=== PATIENT | male | born 1970 | race Caucasian/White ===

== ENCOUNTER 2016-10-19 13:53 | Emergency (ER) | payer OTHER ==
[~2016-10-19] VITALS: Ht 167.6 cm; Wt 64.3 kg
[2016-10-19 14:01] VITALS: TEMP 36.7; Ht 167.6 cm; Wt 64.3 kg
[2016-10-19] MEDS ORDERED: NYSTATIN SUSP 500,000 U/5 ML UDC PO STA ×2 (14:43→14:46)
[2016-10-19] MEDS ORDERED: NYSS/ PO (14:46)
[2016-10-19] MEDS ORDERED: CLOTRIMAZOLE 1% CR 15 GM TUBE EXT ONE (15:00)
[2016-10-19 15:06] VITALS: BP 120/85; PULSE 89; O2SAT 97
--- NOTE | 2016-10-19 15:14 | EMERGENCY ROOM VISIT NOTE ---
History Report prepared by Martínez: Steve Singh Under the Supervision of: Dr. Maicol Beatty M.D. First contact with patient: 14:30 Chief Complaint: SORETHROAT Stated Complaint: WHITE STOTS IN THROAT, SORE History of Present Illness The patient is a 46 year old male who presents to the Emergency Room with complaints of a worsening sore throat beginning three months prior to arrival. He currently rates his discomfort as a 10/10 in severity. The patient associates white spots in his throat, difficulty swallowing, rash on his chest, sores on his chin and chest, ulcers in his mouth, fever, chills, and nausea with today's symptoms. He states he has been under a lot of stress recently, especially since his girlfriend broke up with him in July. The patient notes he was told yesterday by his ex-girlfriend that she is taking prednisone. He states he participated in oral sex with her in July. The patient notes his doctor prescribed him Acyclovir in the beginning of September. He states he had an episode of thrush two years ago after a shoulder surgery. The patient notes he attends a pain clinic regularly. He states he also has a history of bipolar disorder and a heart attack four years ago. Pt denies LOC, headache, diaphoresis , visual changes, neck pain, chest pain, breathing difficulties, vomiting, abdominal pain, back pain, melena, hematochezia, urinary symptoms, numbness, weakness, lymphadenopathy, or other complaints. 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 A total of ten systems were reviewed and were otherwise negative. Past Medical & Surgical Medical Problems: (1) Bipolar disorder (2) Heart attack (3) Thrush Surgical Problems: (1) S/P shoulder surgery Family History Patient reports no known family medical history. Social History Smoking Status: Current Every Day Smoker Marital Status: single Occupation Status: disabled Current/Historical Medications Scheduled Gabapentin (Neurontin), 300 MG PO TID Lisinopril (Zestril), 2.5 MG PO DAILY Nabumetone (Relafen), 500 MG PO TID Nystatin (Nystatin Suspension), 5 ML PO QID [Alavert D-12], 1 DOSE PO BID Scheduled PRN Hydroxyzine Hcl (Atarax), 25 MG PO TID PRN for Anxiety Nitroglycerin (Nitrostat), 0.4 MG UT UD PRN for Chest Pain [Proair HFA], 2 PUFFS INH UD PRN for SOB/Wheezing Allergies Coded Allergies: Iodinated Diagnostic Agents (Verified Allergy, Severe, ANAPHYLAXIS, 10/19/16 ) Cephalexin (Verified Allergy, Intermediate, Rash and hives, 10/19/16) Physical Exam Vital Signs Date Time Temp Pulse Resp B/P Pulse Ox O2 Delivery O2 Flow Rate FiO2 10/19/16 15:06 89 17 120/85 97 10/19/16 15:00 89 17 120/85 97 Room Air 10/19/16 14:01 36.7 110 20 124/60 96 Room Air Physical Exam GENERAL: Awake, alert, well-appearing, in no distress HENT: Normocephalic, atraumatic. Mild posterior erythema and a few white patches noted in the tonsillar fossae. Small ulceration on the back of the tongue on the right side. EYES: Normal conjunctiva. Sclera non-icteric. NECK: Supple. No nuchal rigidity. FROM. No JVD. RESPIRATORY: Clear to auscultation. CARDIAC: Regular rate, normal rhythm. Extremities warm and well perfused. Pulses equal. ABDOMEN: Soft, non-distended. No tenderness to palpation. No rebound or guarding. No masses. RECTAL: Deferred. MUSCULOSKELETAL: Chest examination reveals no tenderness. The back is symmetrical on inspection without obvious abnormality. There is no CVA tenderness to palpation. No joint edema. LOWER EXTREMITIES: Calves are equal size bilaterally and non-tender. No edema. No discoloration. NEURO: Normal sensorium. No sensory or motor deficits noted. SKIN: Scattered erythematous scaly patches noted on the upper trunk and under the chin. No cellulitis. No abscess. No folliculitis. Medical Decision & Procedures Medications Administered Medications (Trade) Dose Ordered Sig/Adry Route Start Time Stop Time Status Last Admin Dose Admin Nystatin (Mycostatin Susp) 5 ml NOW STAT PO 10/19/16 14:43 10/19/16 14:44 DC 10/19/16 14:57 5 ML Nystatin (Mycostatin Susp) 20 ml NOW STAT PO 10/19/16 14:46 10/19/16 14:48 DC 10/19/16 14:58 20 ML Clotrimazole (Lotrimin 1% Crm) 1 appln NOW ONCE EXT 10/19/16 15:00 10/19/16 15:01 DC 10/19/16 14:59 1 APPLN ED Course 1438: The patient was evaluated in room C11B. A complete history and physical exam was performed. 1443: Ordered Nystatin 5 ml PO. 1446: Ordered Nystatin 5 ml PO. 1500: Ordered Clotrimazole 1 appln EXT. 1505: I reevaluated the patient. Discussed results and discharge instructions: He verbalized understanding and agreement. The patient is ready for discharge. Medical Decision Triage Nursing notes reviewed. The patient's presentation and history were concerning for sore throat, rash. Etiologies such as thrush, aphthous ulcer, viral syndrome, pharyngitis, dermatitis, tinea, peritonsillar abscess as well as others were entertained. The patient was evaluated. I did perform fungal and complete throat culture. The patient appears to have some thrush-like spots in the back of his throat. He notes a long history of this problem. There is nothing acute to warrant CT imaging or x-ray imaging at this time. Blood work was not obtained. The patient has no respiratory distress. He has no neck swelling. He was given nystatin swish and swallow. He was also given clotrimazole cream for the dermatitis. He was recommended to follow up with his primary physician and if his symptoms are not resolved to consider GI and ENT referral with his primary doctor. The patient felt very comfortable with this plan.I gave my usual and customary discussion regarding this issue. By the evaluation outlined above other emergent etiologies such as those listed in the differential, as well as others, were deemed relatively unlikely. The patient was informed about the findings as listed above. All questions were answered and he was pleased with the treatment. Return instructions were outlined and the patient was discharged in stable condition. The patient was referred to his PCP for follow-up for a recheck of the current condition. The chart was completed utilizing [employer] voice recognition software. Grammatical errors, random word insertions, pronoun errors, and incomplete sentences are an occasional consequence of this system due to software limitations, ambient noise, and hardware issues. Any formal questions or concerns about the content, text, or information contained within the body of this dictation should be directly addressed to the physician for clarification. Impression Primary Impression: Pharyngitis Additional Impressions: Thrush, Dermatitis Scribe Attestation The scribe's documentation has been prepared under my direction and personally reviewed by me in its entirety. I confirm that the note above accurately reflects all work, treatment, procedures, and medical decision making performed by me. Departure Information Dispostion Home / Self-Care Prescriptions Nystatin (Nystatin Suspension) 1 Ml Susp 5 ML PO QID, #200 ML Prov: Maicol Beatty MD 10/19/16 Referrals Jame Larios PA-C (PCP) Forms HOME CARE DOCUMENTATION FORM, IMPORTANT VISIT INFORMATION Patient Instructions A Signature Page, My [facility] Additional Instructions Clotrimazole cream to the skin rash twice a day for 10 days. Nystatin swish and swallow 5 mL 4 times daily for 10 days. Continue your current medications. Follow-up with your primary physician as scheduled. Discuss referral to gastroenterology and ENT. Return to the Emergency Room for inability to swallow, severe pain, vomiting, difficulty breathing, neck swelling, or as needed.
[2016-10-19] MEDS ORDERED: HYDR-3124 PO (15:30)
[2016-10-19] MEDS ORDERED: Proair HFA INH (15:30)
[2016-10-19] MEDS ORDERED: NABU500T3 PO (15:30)
[2016-10-19] MEDS ORDERED: GABA-113 PO (15:30)
[2016-10-19] MEDS ORDERED: NTRGSL/4 UT (15:30)
[2016-10-19] MEDS ORDERED: LISI-789 PO (15:30)
[2016-10-19] MEDS ORDERED: ALAVERT D12 PO (15:30)
--- NOTE | 2016-10-22 13:29 | Pharmacy Progress Note ---
ED Pharmacist Culture FollowUp Date of Service: Oct 22, 2016. Patient was sent home with a prescription for nystatin, which should cover the Grace albicans growing from the patient's throat culture.
[2017-06-01] MEDS ORDERED: [UNRECOGNIZED DRUG - CODE] PO (09:12)
[2017-06-01] MEDS ORDERED: HYDR25CA PO (09:12)
[2017-06-01] MEDS ORDERED: DPKEC500 PO (09:12)
[2017-06-01] MEDS ORDERED: NICO14DI5 TD (09:12)
[2017-06-01] MEDS ORDERED: CLR10 PO (09:12)
[2017-06-01] MEDS ORDERED: ZYP10 PO (09:12)
== END 2016-10-19 15:06 | disposition home or self-care (01) ==
LOC: C.EDB 13:55 → C.EDC 15:06
DX: J02.9 Acute pharyngitis, unspecified (principal); B37.9 Candidiasis, unspecified; L30.9 Dermatitis, unspecified; F17.200 Nicotine dependence, unspecified, uncomplicated; F31.9 Bipolar disorder, unspecified

== ENCOUNTER 2017-05-19 10:45 | Emergency (ER) | payer OTHER ==
[~2017-05-19] VITALS: Ht 167.6 cm; Wt 62.6 kg
[~2017-05-19 10:45] MED LIST: ALAVERT D12 PO; GABA-113 PO; HYDR-3124 PO; LISI-789 PO; NABU500T3 PO; NTRGSL/4 UT; NYSS/ PO; Proair HFA INH
[2017-05-19 10:49] VITALS: TEMP 36.7; Ht 167.6 cm; Wt 62.6 kg
[2017-05-19] MEDS ORDERED: RANITIDINE HCL 50 MG/100 ML D5W IV STA (11:06)
[2017-05-19] MEDS ORDERED: PANTOprazole INJ 40 MG in SYRINGE 0 ML IV ONE (11:15)
[2017-05-19 11:32] LABS: BASO % 0.6 %; BASO ABS # 0.04 K/uL (0-0.2); COMPLETE YES; EOS % 0.7 %; HEMATOCRIT 36.3 % (42-52); IG% 0.1 %; LYMPH % 20.1 %; LYMPH ABS # 1.42 K/uL (1.2-3.4); MEAN CELL VOLUME 92.6 fL (80-100); MEAN CORPUSCULAR HEMOGLOBIN 31.6 pg (25-34); MEAN CORPUSCULAR HGB CONC 34.2 g/dl (32-36); MEAN PLATELET VOLUME 9.6 fL (7.4-10.4); MONO % 9.3 %; NEUT % 69.2 %; PLATELET COUNT 197 K/uL (130-400); RED BLOOD COUNT 3.92 M/uL (4.7-6.1); WHITE BLOOD COUNT 7.08 K/uL (4.8-10.8)
[2017-05-19 11:46] LABS: INR 0.9 (0.9-1.1); PROTHROMBIN TIME (PATIENT) 10.1 SECONDS (9.0-12.0)
[2017-05-19 11:50] LABS: BUN/CREATININE RATIO 9.6 (10-20); CALCIUM 8.7 mg/dl (8.5-10.1); CREATININE 1.1 mg/dl (0.60-1.40); POTASSIUM 3.7 mmol/L (3.5-5.1)
[2017-05-19] MEDS ORDERED: ACYC1CAP8 PO (11:50)
[2017-05-19] MEDS ORDERED: LIDOPOW (11:50)
[2017-05-19] MEDS ORDERED: MBXC PO (12:06)
[2017-05-19] MEDS ORDERED: PANT40TA PO (12:06)
--- NOTE | 2017-05-19 12:13 | DIAGNOSTIC IMAGING REPORT ---
CHEST 2 VIEWS ROUTINE HISTORY: persistent cough COMPARISON: None. FINDINGS: The lungs are clear. Cardiac silhouette is normal in size. No pleural effusions. No pneumothorax. IMPRESSION: No acute process. Electronically signed by: Rodrigue Linares M.D. 05/19/2017 12:12 PM Dictated Date/Time: 05/19/2017 12:10 PM
--- NOTE | 2017-05-19 12:31 | EMERGENCY ROOM VISIT NOTE ---
History First contact with patient: 10:52 Chief Complaint: ABDOMINAL PAIN Stated Complaint: ABD PAIN, NAUSEA, SORES IN MOUTH Nursing Triage Summary: triage note: "I feel sick and i hurt inside my stomach, its been going on for a couple weeks now." pt reports hx of bipolar. "someone is doing something to me, the only thing i should have in my system is marijuana and alcohol." "my left leg is filling up with fluid again." pt denies any thoughts of wanting to harm self or others." History of Present Illness The patient is a 46 year old male who presents to the Emergency Room with complaints of epigastric pain for several weeks. The patient admits to heartburn and burning up into his throat. The patient denies any nausea or vomiting. The patient states that the pain radiates up into his central chest. He describes it as "burning". The patient denies any lower abdominal pain or any urinary symptoms. The patient does admit that he is an alcoholic. He currently is drinking beer but just prior to that he was drinking vodka and cranberry juice. He states he is trying to get back into rehabilitation. He also smokes marijuana. The patient is also complaining of head congestion for several weeks and sores in his mouth underneath his dentures. He states this has been going on since August. He was seen here in October for the same symptoms. The patient states that he could not go to his family doctor because he owes $126 and therefore his family doctor will not see him. He normally goes to [place]. The patient denies ever having an endoscopy in the past. He denies any history of peptic ulcer disease. Review of Systems 10 system review was performed and was negative unless stated otherwise history of present illness. Past Medical/Surgical History Medical Problems: (1) Bipolar disorder (2) Heart attack (3) Thrush Surgical Problems: (1) S/P shoulder surgery Family History Patient reports no known family medical history. Social History Smoking Status: Current Every Day Smoker Marital Status: single Occupation Status: disabled Current/Historical Medications Scheduled Acyclovir (Zovirax), 200 MG PO 5 TIMES DAILY Gabapentin (Neurontin), 300 MG PO TID Lisinopril (Zestril), 2.5 MG PO DAILY Magic Swizzle (Magic Swizzle - SUCRALFA/ALUM/MAG/DIPHEN/LIDO), 3-4 TSP PO ACHS Nabumetone (Relafen), 500 MG PO TID Nystatin (Nystatin Suspension), 5 ML PO QID Pantoprazole (Protonix), 40 MG PO DAILY [Alavert D-12], 1 DOSE PO BID Scheduled PRN Hydroxyzine Hcl (Atarax), 25 MG PO TID PRN for Anxiety Nitroglycerin (Nitrostat), 0.4 MG UT UD PRN for Chest Pain [Proair HFA], 2 PUFFS INH UD PRN for SOB/Wheezing Miscellaneous Medications Lidocaine (Bulk) (Lidocaine) Allergies Coded Allergies: Iodinated Diagnostic Agents (Verified Allergy, Severe, ANAPHYLAXIS, 10/19/16 ) Cephalexin (Verified Allergy, Intermediate, Rash and hives, 10/19/16) Physical Exam Vital Signs Date Time Temp Pulse Resp B/P (MAP) Pulse Ox O2 Delivery O2 Flow Rate FiO2 05/19/17 12:51 83 20 128/94 95 05/19/17 10:49 36.7 117 18 142/90 96 Room Air Physical Exam GENERAL: 46-year-old white male appears in no acute distress MENTAL Status: Alert and oriented 3. EARS: Canals clear. TMs good light reflex. NOSE: Nasal mucosa with mild erythema engorgement. PHARYNX: Erythema but no edema noted of the posterior pharynx. No lesions noted on the posterior pharynx. MOUTH: Few scattered ulcers noted on the gingiva. NECK: Supple, no lymphadenopathy noted. No carotid bruits noted. LUNGS: Clear auscultation without wheezes rales or rhonchi. CARDIAC: Regular rate and rhythm without murmur. Pulses is full and equal throughout. BACK: No CVA tenderness noted. ABDOMEN: Positive bowel sounds all 4 quadrants. Soft, tenderness palpation epigastric region otherwise nontender to palpation without organomegaly or masses. RECTAL: No external masses noted. Anal symmetric tone intact. No internal masses noted. Stool guaiac was negative. EXTREMITIES: No cyanosis or edema noted. Medical Decision & Procedures ER Provider Diagnostic Interpretation: CHEST 2 VIEWS ROUTINE HISTORY: persistent cough COMPARISON: None. FINDINGS: The lungs are clear. Cardiac silhouette is normal in size. No pleural effusions. No pneumothorax. IMPRESSION: No acute process. Electronically signed by: Rodrigue Linares M.D. 05/19/2017 12:12 PM Dictated Date/Time: 05/19/2017 12:10 PM Laboratory Results 05/19/17 11:18 Red Blood Count 3.92, Mean Corpuscular Volume 92.6, Mean Corpuscular Hemoglobin 31.6, Mean Corpuscular Hemoglobin Concent 34.2, Mean Platelet Volume 9.6, Neutrophils (%) (Auto) 69.2, Lymphocytes (%) (Auto) 20.1, Monocytes (%) (Auto) 9.3, Eosinophils (%) (Auto) 0.7, Basophils (%) (Auto) 0.6, Neutrophils # (Auto) 4.90, Lymphocytes # (Auto) 1.42, Monocytes # (Auto) 0.66, Eosinophils # (Auto) 0.05, Basophils # (Auto) 0.04 05/19/17 11:18 Test 05/19/17 11:18 White Blood Count 7.08 K/uL (4.8-10.8) Red Blood Count 3.92 M/uL (4.7-6.1) Hemoglobin 12.4 g/dL (14.0-18.0) Hematocrit 36.3 % (42-52) Mean Corpuscular Volume 92.6 fL (80-100) Mean Corpuscular Hemoglobin 31.6 pg (25-34) Mean Corpuscular Hemoglobin Concent 34.2 g/dl (32-36) Platelet Count 197 K/uL (130-400) Mean Platelet Volume 9.6 fL (7.4-10.4) Neutrophils (%) (Auto) 69.2 % Lymphocytes (%) (Auto) 20.1 % Monocytes (%) (Auto) 9.3 % Eosinophils (%) (Auto) 0.7 % Basophils (%) (Auto) 0.6 % Neutrophils # (Auto) 4.90 K/uL (1.4-6.5) Lymphocytes # (Auto) 1.42 K/uL (1.2-3.4) Monocytes # (Auto) 0.66 K/uL (0.11-0.59) Eosinophils # (Auto) 0.05 K/uL (0-0.5) Basophils # (Auto) 0.04 K/uL (0-0.2) RDW Standard Deviation 44.2 fL (36.4-46.3) RDW Coefficient of Variation 13.1 % (11.5-14.5) Immature Granulocyte % (Auto) 0.1 % Immature Granulocyte # (Auto) 0.01 K/uL (0.00-0.02) Prothrombin Time 10.1 SECONDS (9.0-12.0) Prothromb Time International Ratio 0.9 (0.9-1.1) Activated Partial Thromboplast Time 26.4 SECONDS (21.0-31.0) Partial Thromboplastin Ratio 1.0 Anion Gap 5.0 mmol/L (3-11) Est Creatinine Clear Calc Drug Dose 74.3 ml/min Estimated GFR () 92.8 Estimated GFR (Non- 80.1 BUN/Creatinine Ratio 9.6 (10-20) Calcium Level 8.7 mg/dl (8.5-10.1) Total Bilirubin 0.7 mg/dl (0.2-1) Direct Bilirubin 0.1 mg/dl (0-0.2) Aspartate Amino Transf (AST/SGOT) 52 U/L (15-37) Alanine Aminotransferase (ALT/SGPT) 64 U/L (12-78) Alkaline Phosphatase 79 U/L (45-117) Total Protein 6.7 gm/dl (6.4-8.2) Albumin 3.7 gm/dl (3.4-5.0) Lipase 209 U/L (73-393) Medications Administered Medications (Trade) Dose Ordered Sig/Adry Route Start Time Stop Time Status Last Admin Dose Admin Pantoprazole Sodium 40 mg/ Syringe 10 ml @ 5 mls/min NOW ONCE IV 05/19/17 11:15 05/19/17 11:16 DC 05/19/17 11:20 5 MLS/MIN Ranitidine HCl (zANTac IV) 50 mg NOW STAT IV 05/19/17 11:06 05/19/17 11:10 DC 05/19/17 11:18 50 MG ED Course The patient was evaluated. IV access was obtained. CBC and differential, renal profile, LFTs and lipase levels were ordered. The patient was given Protonix 40 mg IV push and Zantac 50 mg IV. Chest x-ray was ordered. By the radiologist and myself as above without any acute findings. Labs are reviewed. The patient hemoglobin and hematocrit were slightly low. The patient was informed that he is anemic. I also discussed in great length with the patient that the alcohol is irritating his mouth and esophagus as well as his stomach. He verbalized understanding. I offered him to speak with the renal case manager about outpatient rehabilitation and he declined. I also discussed with the patient that he needs to follow with his family doctor to get referred for endoscopy. He states he is not happy with his family doctor and is looking for a new one. The patient was independently evaluated by Dr. Duarte who agree with treatment plan. When the patient was in the process of being discharged he then verbalized to the nurse that he would like evaluated by psych. He had told me prior that his family doctor has switched his bipolar medicines in July and he was not happy with this which. He did not return to his family doctor about the issue . The renal case manager went and spoke with the patient. The psych nurse will evaluate the patient. Please see her note for further details. She did not feel that the patient needed further psychiatric evaluation and therefore the patient was discharged home in stable condition. Medical Decision Differential diagnosis include acute gastritis, peptic ulcer disease, esophageal varices, aphthous ulcers, rash, pneumonia Impression Primary Impression: GERD with esophagitis Additional Impressions: Aphthous ulcer of mouth Alcoholism Bipolar disorder Departure Information Dispostion Home / Self-Care Condition GOOD Prescriptions Magic Swizzle (Magic Swizzle - SUCRALFA/ALUM/MAG/DIPHEN/LIDO) 240 Ml Susp 3-4 TSP PO ACHS, #240 ML 100ml Sucralfate 50ml Maalox 50ml Diphenhydramine 40ml 2% Aq. Lidocaine Swish and Swallow Prov: Mattie Hoyt PA-C 05/19/17 Pantoprazole (Protonix) 40 Mg Tab 40 MG PO DAILY, #30 TAB Prov: Mattie Hoyt PA-C 05/19/17 Referrals Jame Larios PA-C (PCP) Forms Call Back Authorization, HOME CARE DOCUMENTATION FORM, IMPORTANT VISIT INFORMATION Patient Instructions My [facility] Additional Instructions Take Protonix daily as prescribed. Take [id number] Zantac 150 mg at bedtime. Stop drinking alcohol!!!! Use the Magic swizzle as directed. Avoid spicy and acidic foods. Follow-up with your family doctor as soon as possible for referral for endoscopy and possibly reevaluate your bipolar medication. If symptoms worsen, return to ER. Problem Qualifiers Additional Impressions: Bipolar disorder Active/Remission status: currently active Current bipolar episode type: mixed Current episode severity: unspecified Qualified Codes: F31.60 - Bipolar disorder, current episode mixed, unspecified
--- NOTE | 2017-05-19 12:46 | EMERGENCY ROOM VISIT NOTE ---
ED Visit Note First contact with patient: 10:52 I have personally seen and evaluated the patient with the physician greenhouse assistant. I agree with the diagnostic/management decisions and have personally been involved in these decisions and agree with the diagnosis.
[2017-05-19 12:51] VITALS: BP 128/94; PULSE 83; O2SAT 95
[2017-06-01] MEDS ORDERED: [UNRECOGNIZED DRUG - CODE] PO (09:12)
[2017-06-01] MEDS ORDERED: CLR10 PO (09:12)
[2017-06-01] MEDS ORDERED: DPKEC500 PO (09:12)
[2017-06-01] MEDS ORDERED: ZYP10 PO (09:12)
[2017-06-01] MEDS ORDERED: HYDR25CA PO (09:12)
[2017-06-01] MEDS ORDERED: NICO14DI5 TD (09:12)
== END 2017-05-19 13:30 | disposition home or self-care (01) ==
LOC: C.EDB 10:46 → C.EDC 13:30
DX: K21.0 Gastro-esophageal reflux disease with esophagitis (principal); K12.0 Recurrent oral aphthae; R10.13 Epigastric pain; R11.0 Nausea; F31.9 Bipolar disorder, unspecified; F10.288 Alcohol dependence with other alcohol-induced disorder; Z79.899 Other long term (current) drug therapy

== ENCOUNTER 2017-05-26 10:42 | Inpatient (IN) | payer OTHER ==
[~2017-05-26] VITALS: Ht 167.6 cm; Wt 59.2 kg
[~2017-05-26 10:42] MED LIST changes: +ACYC1CAP8 PO; +LIDOPOW; +MBXC PO; +PANT40TA PO
[2017-05-26] MEDS ORDERED: SODIUM CHLORIDE 0.9% 1000ML 1,000 ML IV STA (11:10)
[2017-05-26] MEDS ORDERED: LORAZEPAM 1 MG TAB SL STA (11:10)
--- NOTE | 2017-05-26 11:22 | EMERGENCY ROOM VISIT NOTE ---
History Report prepared by Martínez: Thi Molina Under the Supervision of: Dr. Rene Montenegro M.D. First contact with patient: 10:50 Chief Complaint: MENTAL HEALTH EVALUATION Stated Complaint: [id number] History of Present Illness The patient is a 46 year old male who presents to the Emergency Room for a mental health evaluation. The patient states that he suffers from bipolar disorder and depression. He states that he came to the ED today because he stopped taking his medication 2 days ago. He states he did so because he didn't like the way it was making him feel. He reports that he has been feeling itchy all over and not eating or drinking normally. The patient states that he thinks someone is putting something in his food and drink. The patient reports that he wants new medicine. He states that he has been "self medicating" with alcohol and marijuana. He complains go feeling anxious, shoulder pain, decreased sleep, and hyperactivity. He denies a plan to hurt himself, hurt others, other drug use , feeling helpless, and feeling guilty. He notes a history of a hernia operation , chronic hip pain, and anemia. Source of History: patient Onset: two days ago Position: other (global) Quality: other (global) Timing: other (episode) Modifying Factors (Relieving): other (alcohol and marijuana use) Note: The patient complains of not eating or drinking normally, itchiness, feeling anxious, shoulder pain, decreased sleep, and hyperactivity. He denies a plan to hurt himself, hurt others, other drug use, feeling helpless, and feeling guilty. Review of Systems See HPI for pertinent positives and negatives. A total of ten systems were reviewed and were otherwise negative. Past Medical & Surgical Medical Problems: (1) Anemia (2) Bipolar disorder (3) Chronic hip pain (4) Depression (5) Heart attack (6) Thrush Surgical Problems: (1) H/O hernia repair (2) S/P shoulder surgery Family History Patient reports no known family medical history. Social History Smoking Status: Current Every Day Smoker Smokeless Tobacco Use: No Alcohol Use: heavy Drug Use: marijuana Marital Status: single Occupation Status: disabled Current/Historical Medications Scheduled Acyclovir (Zovirax), 400 MG PO BID Gabapentin (Neurontin), 300 MG PO TID Hydroxyzine Pamoate (Vistaril), 1 CAP PO BID Lisinopril (Zestril), 2.5 MG PO DAILY Pantoprazole (Protonix), 40 MG PO DAILY Scheduled PRN Diclofenac Sod (Voltaren), 75 MG PO BID PRN for Pain Nitroglycerin (Nitrostat), 0.4 MG UT UD PRN for Chest Pain Allergies Coded Allergies: Iodinated Diagnostic Agents (Verified Allergy, Severe, ANAPHYLAXIS, 05/26/17 ) Cephalexin (Verified Allergy, Intermediate, Rash and hives, 05/26/17) Physical Exam Vital Signs Date Time Temp Pulse Resp B/P (MAP) Pulse Ox O2 Delivery O2 Flow Rate FiO2 05/26/17 17:12 36.7 77 20 110/68 99 05/26/17 16:32 77 20 110/68 99 Room Air 05/26/17 11:15 36.7 103 22 142/97 96 Room Air 05/26/17 10:44 36.7 110 20 132/90 98 Room Air Physical Exam GENERAL: Awake, alert, well-appearing, NAD HENT: Normocephalic, atraumatic. EYES: Normal conjunctiva. Sclera non-icteric. NECK: Supple. No nuchal rigidity. FROM. RESPIRATORY: CTAB, no rhonchi, wheezing, crackles CARDIAC: Tachycardic rate, regular rhythm, no MRG ABDOMEN: Soft, NTND, BS+ MSK: No chest wall TTP, no LE edema. Tattoos covering body. NEURO: GCS 15, CN 2-12 intact, moves all 4s on command SKIN: No rash or jaundice noted. Medical Decision & Procedures Laboratory Results 05/26/17 11:53 Red Blood Count 4.39, Mean Corpuscular Volume 95.7, Mean Corpuscular Hemoglobin 32.1, Mean Corpuscular Hemoglobin Concent 33.6, Mean Platelet Volume 10.2, Neutrophils (%) (Auto) 70.5, Lymphocytes (%) (Auto) 19.1, Monocytes (%) (Auto) 8.7, Eosinophils (%) (Auto) 0.7, Basophils (%) (Auto) 0.9, Neutrophils # (Auto) 5.19, Lymphocytes # (Auto) 1.41, Monocytes # (Auto) 0.64, Eosinophils # (Auto) 0.05, Basophils # (Auto) 0.07 05/26/17 11:53 Test 8/8/17 11:53 05/26/17 12:01 05/26/17 12:30 White Blood Count 7.37 K/uL (4.8-10.8) Red Blood Count 4.39 M/uL (4.7-6.1) Hemoglobin 14.1 g/dL (14.0-18.0) Hematocrit 42.0 % (42-52) Mean Corpuscular Volume 95.7 fL (80-100) Mean Corpuscular Hemoglobin 32.1 pg (25-34) Mean Corpuscular Hemoglobin Concent 33.6 g/dl (32-36) Platelet Count 265 K/uL (130-400) Mean Platelet Volume 10.2 fL (7.4-10.4) Neutrophils (%) (Auto) 70.5 % Lymphocytes (%) (Auto) 19.1 % Monocytes (%) (Auto) 8.7 % Eosinophils (%) (Auto) 0.7 % Basophils (%) (Auto) 0.9 % Neutrophils # (Auto) 5.19 K/uL (1.4-6.5) Lymphocytes # (Auto) 1.41 K/uL (1.2-3.4) Monocytes # (Auto) 0.64 K/uL (0.11-0.59) Eosinophils # (Auto) 0.05 K/uL (0-0.5) Basophils # (Auto) 0.07 K/uL (0-0.2) RDW Standard Deviation 48.0 fL (36.4-46.3) RDW Coefficient of Variation 13.6 % (11.5-14.5) Immature Granulocyte % (Auto) 0.1 % Immature Granulocyte # (Auto) 0.01 K/uL (0.00-0.02) Anion Gap 7.0 mmol/L (3-11) Est Creatinine Clear Calc Drug Dose 95.7 ml/min Estimated GFR () 120.0 Estimated GFR (Non- 103.5 BUN/Creatinine Ratio 10.3 (10-20) Calcium Level 8.6 mg/dl (8.5-10.1) Total Bilirubin 1.0 mg/dl (0.2-1) Direct Bilirubin 0.2 mg/dl (0-0.2) Aspartate Amino Transf (AST/SGOT) 49 U/L (15-37) Alanine Aminotransferase (ALT/SGPT) 61 U/L (12-78) Alkaline Phosphatase 87 U/L (45-117) Total Protein 7.3 gm/dl (6.4-8.2) Albumin 3.8 gm/dl (3.4-5.0) Thyroid Stimulating Hormone (TSH) 0.503 uIu/ml (0.300-4.500) Salicylates Level 3.6 mg/dl (2.8-20) Acetaminophen Level < 2 ug/ml (10-30) Ethyl Alcohol mg/dL < 3.0 mg/dl (0-3) Bedside Glucose 97 mg/dl (70-99) Urine Color YELLOW Urine Appearance CLEAR (CLEAR) Urine pH 7.0 (4.5-7.5) Urine Specific [place] 1.015 (1.000-1.030) Urine Protein NEG (NEG) Urine Glucose (UA) NEG (NEG) Urine Ketones 1+ (NEG) Urine Occult Blood NEG (NEG) Urine Nitrite NEG (NEG) Urine Bilirubin NEG (NEG) Urine Urobilinogen NEG (NEG) Urine Leukocyte Esterase SMALL (NEG) Urine WBC (Auto) 1-5 /hpf (0-5) Urine RBC (Auto) 0-4 /hpf (0-4) Urine Hyaline Casts (Auto) 1-5 /lpf (0-5) Urine Epithelial Cells (Auto) 0-5 /lpf (0-5) Urine Bacteria (Auto) NEG (NEG) Urine Opiates Screen NEG (NEG) Urine Methadone, Qualitative NEG (NEG) Urine Barbiturates NEG (NEG) Urine Phencyclidine (PCP) Level NEG (NEG) Ur Amphetamine/Methamphetamine NEG (NEG) MDMA (Ecstasy) Screen NEG (NEG) Urine Benzodiazepines Screen NEG (NEG) Urine Cocaine Metabolite NEG (NEG) Urine Marijuana (THC) POS (NEG) Laboratory results reviewed by me Medications Administered Medications (Trade) Dose Ordered Sig/Adry Route Start Time Stop Time Status Last Admin Dose Admin Lorazepam (Ativan Tab) 1 mg NOW STAT SL 05/26/17 11:10 05/26/17 11:14 DC 05/26/17 11:38 1 MG Sodium Chloride 1,000 ml @ 999 mls/hr Q1H1M STAT IV 05/26/17 11:10 05/26/17 12:10 DC 05/26/17 11:10 999 MLS/HR Hydroxyzine HCl (Vistaril Tab) 25 mg NOW STAT PO 05/26/17 11:50 05/26/17 11:51 DC 05/26/17 12:08 25 MG Acetaminophen (Tylenol Tab) 1,000 mg NOW STAT PO 05/26/17 15:00 05/26/17 15:02 DC 05/26/17 15:26 1,000 MG Nicotine (Nicoderm Cq 14MG Patch) 1 patch NOW TD 05/26/17 15:00 05/26/17 17:24 DC 05/26/17 16:23 1 PATCH Loratadine (Claritin Tab) 10 mg NOW ONCE PO 05/26/17 16:15 05/26/17 16:16 DC 05/26/17 16:22 10 MG Haloperidol (Haldol Tab) 5 mg Q4H PRN PO 05/26/17 16:45 06/25/17 16:44 05/26/17 17:00 5 MG ECG Indication: altered mental status Rate (beats per minute): 82 Rhythm: normal sinus Findings: other (normal QRS QTC intervals, no STS changes or TWI) ED Course 1058: The patient was evaluated in room A8. A complete history and physical exam was performed. 1110: Ordered NSS 1000 ml @ 999 mls/hr IV, Ativan Tab 1 mg SL. 1115: Ordered Benadryl Maldonado 25 mg PO. 1150: Ordered Vistaril Tab 25 mg PO. 1500: Nicotine 1 patch TD, Tylenol Tab 1000 mg PO. 1501: The patient has been medically cleared and accepted voluntary inpatient treatment. Medical Decision The patient is a 46 year old male who presents to the Emergency Room for a mental health evaluation.He notes a history of bipolar disorder, depression, a double hernia operation, chronic hip pain, and anemia. Differential diagnoses include medication noncompliance, intoxication, acute psychosis. Patient had fairly benign labwork. He was otherwise medically cleared. Patient was concerned about some possible past heart history but was unable to elaborate. Patient had a fairly unremarkable EKG and did not have any active chest pain. Her mental health specialist saw the patient and agree with the patient would benefit from voluntary inpatient treatment. Patient was amenable to inpatient treatment. He was admitted to 3 S. Medication Reconcilliation Current Medication List: was personally reviewed by nm Blood Pressure Screening Patient's blood pressure: Elevated blood pressure Blood pressure disposition: Referred to PCP Impression Primary Impression: Acute psychosis Additional Impression: Noncompliance Scribe Attestation The scribe's documentation has been prepared under my direction and personally reviewed by me in its entirety. I confirm that the note above accurately reflects all work, treatment, procedures, and medical decision making performed by me. Departure Information Dispostion Mental Health Acute Care Referrals No Doctor, Assigned (PCP) Patient Instructions My [facility] Problem Qualifiers
[2017-05-26] MEDS ORDERED: PANT40TA PO (11:23)
[2017-05-26] MEDS ORDERED: hydrOXYzine HCL 25 MG TAB PO STA (11:50)
[2017-05-26 12:40] LABS: BASO % 0.9 %; BASO ABS # 0.07 K/uL (0-0.2); COMPLETE YES; EOS % 0.7 %; IG% 0.1 %; LYMPH % 19.1 %; LYMPH ABS # 1.41 K/uL (1.2-3.4); MEAN CELL VOLUME 95.7 fL (80-100); MEAN CORPUSCULAR HEMOGLOBIN 32.1 pg (25-34); MEAN CORPUSCULAR HGB CONC 33.6 g/dl (32-36); MEAN PLATELET VOLUME 10.2 fL (7.4-10.4); MONO % 8.7 %; NEUT % 70.5 %; PLATELET COUNT 265 K/uL (130-400); RED BLOOD COUNT 4.39 M/uL (4.7-6.1); WHITE BLOOD COUNT 7.37 K/uL (4.8-10.8)
[2017-05-26 12:46] LABS: BUN/CREATININE RATIO 10.3 (10-20); CALCIUM 8.6 mg/dl (8.5-10.1); CREATININE 0.87 mg/dl (0.60-1.40); POTASSIUM 4.3 mmol/L (3.5-5.1)
[2017-05-26 12:57] LABS: THYROID STIMULATING HORMONE 0.503 uIu/ml (0.300-4.500)
[2017-05-26 12:58] LABS: URINE APPEARANCE CLEAR (CLEAR); URINE BILIRUBIN NEG (NEG); URINE COLOR YELLOW; URINE EPITHELIAL CELL AUTO 0-5 /lpf (0-5); URINE NITRITE NEG (NEG); URINE SPECIFIC GRAVITY 1.015 (1.000-1.030); UROBILINOGEN NEG (NEG)
[2017-05-26 12:59] LABS: MANUAL MICROSCOPIC REQUIRED? NO; REVIEW REQ? NO
[2017-05-26 13:16] LABS: BENZODIAZEPINE, URINE NEG (NEG); COCAINE,URINE NEG (NEG); PHENCYCLIDINE, URINE NEG (NEG)
[2017-05-26 13:16] LABS: ACETAMINOPHEN < 2 ug/ml (10-30)
[2017-05-26] MEDS ORDERED: ACETAMINOPHEN 500 MG TAB PO STA (15:00)
[2017-05-26] MEDS: NICOTINE 14 MG/24 HR TDSY TD SCH ×2 (15:27→16:23)
[2017-05-26] MEDS ORDERED: LORATADINE 10 MG TAB PO ONE (16:15)
[2017-05-26] MEDS ORDERED: [UNRECOGNIZED DRUG - CODE] PO (16:21)
[2017-05-26] MEDS ORDERED: HYDR25CA PO (16:21)
[2017-05-26] MEDS ORDERED: ACYC1CAP8 PO (16:21)
[2017-05-26] MEDS ORDERED: HALOPERIDOL 5 MG TAB PO PRN (16:45)
[2017-05-26] MEDS ORDERED: NITROGLYCERIN 0.4 MG SL PER TAB CHARGE UT PRN (16:45)
[2017-05-26] MEDS ORDERED: BISMUTH SUBSALICYLATE PER ML OMNICELL CHARGE PO PRN (16:45)
[2017-05-26] MEDS ORDERED: ALUMINUM/MAGNESIUM SUSP 30 ML UDC PO PRN (16:45)
[2017-05-26] MEDS ORDERED: HALOPERIDOL LACTATE 5 MG/ML 1 ML VIAL IM STA (16:46)
[2017-05-26 17:12] VITALS: O2SAT 99
[2017-05-26] MEDS: ACETAMINOPHEN 325 MG TAB PO PRN (18:49)
[2017-05-26] MEDS ORDERED: NURSING VERBAL MED ORDER ONE (19:15)
[2017-05-26 19:26] VITALS: BP 119/81; PULSE 80; TEMP 36.8; Ht 167.6 cm; Wt 59.2 kg
[2017-05-26] MEDS ORDERED: LORAZEPAM 1 MG TAB PO PRN (20:15)
[2017-05-26] MEDS ORDERED: GABAPENTIN 300 MG CAP PO SCH (21:00)
[2017-05-26 21:02] VITALS: BP 116/77; PULSE 69; TEMP 36.6
[2017-05-26] MEDS ORDERED: GABAPENTIN 600 MG TAB PO STA (21:14)
[2017-05-26] MEDS: BENZOCAINE 20% (ORAJEL) 11.9 GM TUBE MT SCH (21:14)
[2017-05-26] MEDS: THIAMINE HCL 100 MG TAB PO SCH (21:21)
[2017-05-27] MEDS: GABAPENTIN 600MG Q6H DOSE PO SCH ×2 (04:03→08:49)
[2017-05-27 06:56] VITALS: BP_SYST 117; BP_SYST 133; BP_DIAS 79; BP_DIAS 92; PULSE 71; PULSE 73; TEMP 36.4
[2017-05-27 08:42] VITALS: BP 137/85; PULSE 83; TEMP 36.6
[2017-05-27] MEDS: LISINOPRIL 2.5 MG TAB PO SCH (08:49)
[2017-05-27] MEDS: BENZOCAINE 20% (ORAJEL) 11.9 GM TUBE MT SCH ×4 (08:49→20:50)
[2017-05-27] MEDS: PANTOprazole SOD 40 MG TAB PO SCH (08:49)
[2017-05-27] MEDS ORDERED: OLANZAPINE 2.5 MG TAB PO PRN (10:00)
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
[2017-05-27] MEDS ORDERED: DIVALPROEX SODIUM 500 MG DELAY RELEASE TAB PO ONE (11:30)
[2017-05-27] MEDS: MAGNESIUM HYDROXIDE SUSP 30 ML UDC PO PRN (11:41)
[2017-05-27 12:01] VITALS: BP 122/88; PULSE 97; TEMP 36.7
[2017-05-27] MEDS: DICLOFENAC SOD 25 MG TABEC PO PRN (13:35)
[2017-05-27] MEDS ORDERED: NURSING VERBAL MED ORDER ONE (15:15)
[2017-05-27] MEDS: NICOTINE 21 MG/24 HR TDSY TD SCH (15:36)
[2017-05-27 17:01] VITALS: BP 123/84; PULSE 80; TEMP 36.8
[2017-05-27] MEDS: GABAPENTIN 600MG Q8H DOSE PO SCH (18:13)
[2017-05-27 20:00] VITALS: BP 138/93; PULSE 83; TEMP 36.9
[2017-05-27] MEDS: THIAMINE HCL 100 MG TAB PO SCH (20:48)
[2017-05-27] MEDS: DIVALPROEX SODIUM 500 MG DELAY RELEASE TAB PO SCH (21:04)
[2017-05-27] MEDS ORDERED: OLANZAPINE 2.5 MG TAB PO SCH (22:00)
[2017-05-27] MEDS: SODIUM CHLORIDE 0.65% NA SOLN 45 ML (OCEAN) PRN (22:14)
[2017-05-28] MEDS: GABAPENTIN 600MG Q8H DOSE PO SCH ×2 (02:15→08:29)
[2017-05-28 06:47] VITALS: BP_SYST 120; BP_SYST 127; BP_DIAS 80; BP_DIAS 86; PULSE 76; PULSE 83; TEMP 36.5
[2017-05-28] MEDS: DICLOFENAC SOD 25 MG TABEC PO PRN (07:29)
[2017-05-28 07:40] LABS: CHOLESTEROL/HDL RATIO 2.1
[2017-05-28] MEDS: SODIUM CHLORIDE 0.65% NA SOLN 45 ML (OCEAN) PRN (07:42)
[2017-05-28 08:07] VITALS: BP 127/86; PULSE 76; PULSE 83; TEMP 36.5
[2017-05-28] MEDS: BENZOCAINE 20% (ORAJEL) 11.9 GM TUBE MT SCH ×4 (08:27→21:30)
[2017-05-28] MEDS: PANTOprazole SOD 40 MG TAB PO SCH (08:28)
[2017-05-28] MEDS: DIVALPROEX SODIUM 500 MG DELAY RELEASE TAB PO SCH ×2 (08:28→21:31)
[2017-05-28] MEDS: LISINOPRIL 2.5 MG TAB PO SCH (08:28)
[2017-05-28] MEDS: NICOTINE 21 MG/24 HR TDSY TD SCH ×2 (08:32→15:32)
[2017-05-28] MEDS ORDERED: BENZTROPINE MESYLATE 1 MG TAB PO ONE (10:45)
--- NOTE | 2017-05-28 10:59 | Psychiatric Progress Notes ---
Progress Note Date of Service May 28, 2017. Interval History 46 yo man admitted voluntarily with psychosis. He presents many paranoid delusions of persecution affecting his ability to make reality based decisions. He reports a history of bipolar disorder, , with manic episodes, and has done well on depakote in the past. He is agreeable to returning to depakote, which may also help with his reports of anger. We will also start some zyprexa 2.5 mg HS until depakote therapeutic. Will need to coordinate with his case assistant , Britta, who he says in looking for new housing. He will also need psychiatric follow up. At this time, he requires inpatient care due to the severity of his condition and the inability to manipulate information in a reality based manner. Chief Complaint "My bones ache.". Subjective Patient was seen & assessed interval progress reviewed with Treatment Team. The patient is quite agitated today, feeling that others are disrespecting him. He is misinterpreting acts as intentionally done to frustrate him ie he asked for coffee this AM and was mistakenly give a cup of hot water instead. He is also agitated about having only one change of clothes, no footwear or socks. He just got off of the phone with his case assistant Britta who he says is helping him to find new housing. He was angry and agitated after the call saying that he was supposed to move in Thursday, yesterday, but Britta says things are still in process, and he believes that something is wrong and he isn' t being told. He feels anxious and is asking for something "to calm me down". He continues to deny SI/HI, aud/vis hallucinations and says that he feels safe here. He says "I need a cigarette, a joint and a beer, but I don't want to do that.". Review of Systems Constitutional: + problem reported (bones aching) ENT: + problem reported (dry airways) Respiratory: No cough, No sputum, No wheezing, No shortness of breath, No dyspnea on exertion, No dyspnea at rest, No hemoptysis, No problem reported Cardiovascular: No chest pain, No orthopnea, No PND, No edema, No claudication , No palpitations, No problem reported Abdomen: + diarrhea (yesterday) Musculoskeletal: + joint pain Neurologic: + problem reported (walks with a cane for stability) Psychiatric: + depression symptoms, + anxiety, + problem reported (agitation) Integumentary: + problem reported (skin cracks on fingers) Sleep Information Total Hours of Sleep: 8.25 Meal Information Percent of Breakfast Consumed: 0 Percent of Lunch Consumed: 100 Percent of Dinner Consumed: 95 Mental Status Exam During interview pt is: alert and oriented, other (agitated) Appearance: appropriately dressed, appropriately groomed, other (very lean in appearance) Eye contact is: good Motor behavior is: steady gait & station (walks with a cane), tremor Speech: normal in rate, rhythm & volume Affect: irritable Mood is: angry Thought process: circumstantial, tangential Thought content: delusions Suicidal thought are: denied Homicidal thoughts are: denied Hallucinations: denies auditory, denies visual Cognition: other (obscured by psychosis) Intelligence estimated to be: consistent with level of education Insight: impaired Judgement: impaired Impression The patient remains paranoid, believing others are intentionally withholding information and treating him badly. He is complaining of his bones aching and will give him a one time Cogentin 2 mg. to be sure this is not EPS. Will also allow him to have his shoes at the bedside for gait stability. Social service has talked with his case assistant Britta who clarified that he does have the apartment, but that the landlord will not be available to sign the lease until Thursday, which is why he can't move in until next Thursday. Reviewed his labs with him (FBS, FLP WNL). Will increase Zyprexa to 5 mg. HS and continue/ encourage use of prns zyprexa. Plan (1) Bipolar disorder, current episode manic severe with psychotic features 05/27 - Start Depakote ER 500 mg twice a day, titrating as tolerated. Risks, benefits, alternatives reviewed and accepted including the need for therapeutic blood levels - Start Zyprexa 2.5 mg at bedtime titrating as tolerated. Risks, benefits and alternatives were reviewed and accepted including the risk for tardive dyskinesia -Every 15 minute checks for safety -Encourage participation in group and individual counseling, as tolerated -Monitor food intake in view of recent weight loss due to paranoia -Coordinate with case assistant Britta Reed regarding current services and housing -The patient will need psychiatric aftercare -Obtain records from [facility] in [place] where he last received psychiatric services -Family meeting if indicated 05/28 - Increase Zyprexa to 5 mg. daily - Continue depakote - Reality orientation (2) Alcohol use disorder 05/27 - AWSS protocol - Recommend abstinence - Consider inpatient rehabilitation or IOP after psychosis treated -Recovery protocol (3) Cannabis abuse 05/27 - Recommend abstinence (4) Chronic pain 05/27 -PDMP site queried. Last prescription for opiates 01/23/[address] Cardoso [place] -Will order ibuprofen 600 mg 4 times daily when necessary pain 05/28 - Already has Voltaren ordered, so no Ibuprofen - Will allow to have his shoes during the day - Will have dietary consult due to gum ulcers under his dentures, for food choices Has been reviewed with Dr. Shirley Sheikh Discharge / Aftercare Planning Primary Care Physician: Name: none currently; used to be [facility] Therapist: Name: none Group Cio: Name: Britta Visit Code E&M Code: 71643 Inventory Assets Strengths: Willingness for treatment, has a case assistant, spirituality Needs: to abstain from alcohol and abusable substances Risk Factors Assessment Male: Yes : Yes /single/: Yes Higher / Fall in social status: No Health problems: Yes Mental Health Diagnoses: Yes Substance use disorders: Yes Previous attempt: Yes Previous psychiatric stay: Yes Hopelessness: No Smoker: Yes Protective Factors Assessment Jewish beliefs: Yes : No Responsible for young children: No Employed: No Stable relationships: No Data Vital Signs Last 24 Hrs: Date Time Temp Pulse Resp B/P (MAP) Pulse Ox O2 Delivery O2 Flow Rate FiO2 05/28/17 08:07 36.5 76 16 127/86 83 05/28/17 06:47 36.5 76 16 120/80 83 127/86 05/27/17 20:00 36.9 83 16 138/93 05/27/17 17:01 36.8 80 16 123/84 05/27/17 12:01 36.7 97 16 122/88 Meds Administered Last 24 Hrs: Meds Administered (Past 24Hrs) Medications (Trade) Dose Ordered Sig/Adry Route Start Time Stop Time Status Last Admin Dose Admin Lorazepam (Ativan Tab) 1 mg NOW STAT SL 8/8/17 11:10 05/26/17 11:14 DC 05/26/17 11:38 1 MG Sodium Chloride 1,000 ml @ 999 mls/hr Q1H1M STAT IV 05/26/17 11:10 05/26/17 12:10 DC 05/26/17 11:10 999 MLS/HR Hydroxyzine HCl (Vistaril Tab) 25 mg NOW STAT PO 05/26/17 11:50 05/26/17 11:51 DC 05/26/17 12:08 25 MG Acetaminophen (Tylenol Tab) 1,000 mg NOW STAT PO 05/26/17 15:00 05/26/17 15:02 DC 05/26/17 15:26 1,000 MG Nicotine (Nicoderm Cq 14MG Patch) 1 patch NOW TD 05/26/17 15:00 05/26/17 17:24 DC 05/26/17 16:23 1 PATCH Loratadine (Claritin Tab) 10 mg NOW ONCE PO 05/26/17 16:15 05/26/17 16:16 DC 05/26/17 16:22 10 MG Acetaminophen (Tylenol Tab) 650 mg Q4H PRN PO 05/26/17 16:45 06/25/17 16:44 05/26/17 18:49 650 MG Magnesium Hydroxide (Milk Of Magnesia Susp) 30 ml DAILY PRN PO 05/26/17 16:45 06/25/17 16:44 05/27/17 11:41 30 ML Sodium Chloride ([place] Nasal [place]) PRN PRN NA 05/26/17 16:45 06/25/17 16:44 05/28/17 07:42 1 SPRAYS Diclofenac Sodium (Voltaren Tab) 75 mg BID PRN PO 05/26/17 16:45 06/25/17 16:44 05/28/17 07:29 75 MG Lisinopril (Zestril Tab) 2.5 mg DAILY PO 05/27/17 09:00 06/26/17 08:59 05/28/17 08:28 2.5 MG Pantoprazole Sodium (Protonix Tab) 40 mg DAILY PO 05/27/17 09:00 06/26/17 08:59 05/28/17 08:28 40 MG Haloperidol (Haldol Tab) 5 mg Q4H PRN PO 05/26/17 16:45 05/27/17 10:59 DC 05/26/17 17:00 5 MG Benzocaine (Orajel 2% Oral Gel) 1 appln QID MT 05/26/17 22:00 06/25/17 21:59 05/28/17 08:27 1 APPLN Thiamine HCl (Vitamin B-1 Tab) 100 mg Q24H PO 05/26/17 21:00 06/25/17 20:59 05/27/17 20:48 100 MG Gabapentin (Neurontin Tab) 1,200 mg NOW STAT PO 05/26/17 21:14 05/26/17 21:15 DC 05/26/17 21:21 1,200 MG Gabapentin (Neurontin Tab) 600 mg Q6H PO 05/27/17 04:00 05/27/17 10:01 DC 05/27/17 08:49 600 MG Gabapentin (Neurontin Tab) 600 mg Q8H PO 05/27/17 18:00 05/28/17 10:01 DC 05/28/17 08:29 600 MG Divalproex Sodium (Depakote Delay Rel Tab) 500 mg BID PO 05/27/17 22:00 06/26/17 21:59 05/28/17 08:28 500 MG Divalproex Sodium (Depakote Delay Rel Tab) 500 mg 1130 ONCE PO 05/27/17 11:30 05/27/17 11:31 DC 05/27/17 11:41 500 MG Olanzapine (Zyprexa Tab) 2.5 mg HS PO 05/27/17 22:00 06/26/17 21:59 05/27/17 21:04 2.5 MG Nicotine (Nicoderm Cq 21MG Patch) 1 patch QAM TD 05/27/17 15:12 06/26/17 15:11 05/27/17 15:36 1 PATCH Lab Results Last 24 Hrs: Last 24 Hours Test 05/28/17 06:51 Fasting Glucose 94 mg/dl Triglycerides Level 101 mg/dl Cholesterol Level 145 mg/dl HDL Cholesterol 70 mg/dl LDL Cholesterol, Calculated 55 mg/dl VLDL Cholesterol, Calculated 20 mg/dl Cholesterol/HDL Ratio 2.1 Problem Qualifiers (1) Chronic pain: Chronic pain type: due to trauma Qualified Codes: G89.21 - Chronic pain due to trauma
[2017-05-28] MEDS: OLANZAPINE 2.5 MG TAB PO PRN ×2 (11:18→19:53)
[2017-05-28 12:47] VITALS: BP 132/88; PULSE 79; TEMP 36.9
[2017-05-28 17:46] VITALS: BP 156/79; PULSE 97; TEMP 36.8
[2017-05-28] MEDS: ACETAMINOPHEN 325 MG TAB PO PRN (19:52)
[2017-05-28 20:11] VITALS: BP 136/79; PULSE 76; TEMP 36.8
[2017-05-28] MEDS: MAGNESIUM HYDROXIDE SUSP 30 ML UDC PO PRN (20:37)
[2017-05-28] MEDS: THIAMINE HCL 100 MG TAB PO SCH (21:30)
[2017-05-28] MEDS ORDERED: OLANZAPINE 5 MG TAB PO SCH (22:00)
[2017-05-28] MEDS ORDERED: GABAPENTIN 600MG Q12H DOSE PO SCH (22:00)
[2017-05-29 06:49] VITALS: BP_SYST 106; BP_SYST 114; BP_DIAS 68; BP_DIAS 74; PULSE 67; PULSE 76; TEMP 36.4
[2017-05-29] MEDS: PANTOprazole SOD 40 MG TAB PO SCH (08:23)
[2017-05-29] MEDS: DIVALPROEX SODIUM 500 MG DELAY RELEASE TAB PO SCH ×2 (08:23→21:20)
[2017-05-29] MEDS: LISINOPRIL 2.5 MG TAB PO SCH (08:23)
[2017-05-29] MEDS: BENZOCAINE 20% (ORAJEL) 11.9 GM TUBE MT SCH ×4 (08:23→21:20)
[2017-05-29] MEDS: NICOTINE 21 MG/24 HR TDSY TD SCH (08:24)
[2017-05-29 08:59] VITALS: BP 114/68; PULSE 67; PULSE 76; TEMP 36.4
--- NOTE | 2017-05-29 11:55 | Psychiatric Progress Notes ---
Progress Note Date of Service May 29, 2017. Interval History 46 yo man admitted voluntarily with psychosis. He presents many paranoid delusions of persecution affecting his ability to make reality based decisions. He reports a history of bipolar disorder, with manic episodes and was restarted on Depakote with adjunctive Zyprexa until therapeutic on mood stabilizer. Chief Complaint "They need to quit messing with me". Subjective Patient was seen & assessed interval progress reviewed with Treatment Team. Received prn Zyprexa last pm, he states due to restlessness. He feels uncomfortable in groups as "I've had some issue with people with all of the names here". He is irritable with staff this am, disorganized 1 minute asking to leave and the next saying we need to figure out his housing. Apparently his reports of disarray of his housing situation were reality based. He believes that items on his food tray aren't correct on purpose to harm him and then references GOD and his past foster parents. He denies symptoms of ETOH withdrawal. Review of Systems Psych: denies symptoms other than stated above Constitutional: nasal congestion Cardiovascular: denied GI: denied Neurologic: denied Remainder of 10 body systems also reviewed and denied other than noted above. Sleep Information Total Hours of Sleep: 6.50 Meal Information Percent of Breakfast Consumed: 50 Percent of Lunch Consumed: 100 Percent of Dinner Consumed: 100 Mental Status Exam During interview pt is: alert and oriented, other (agitated) Appearance: disheveled, other (very lean in appearance) Eye contact is: good, fair Motor behavior is: steady gait & station (walks with a cane), tremor Speech: loud (hyperverbal) Affect: irritable Mood is: irritable Thought process: tangential Thought content: paranoid, delusions Suicidal thought are: denied Homicidal thoughts are: denied Hallucinations: denies auditory, denies visual Cognition: other (obscured by psychosis) Intelligence estimated to be: consistent with level of education Insight: impaired Judgement: impaired Impression Remains manic and paranoid, restless and loud but not combative. Continued inpatient hospitalization is medically necessary for ongoing monitoring and safety. Plan (1) Bipolar disorder, current episode manic severe with psychotic features 05/27 - Start Depakote ER 500 mg twice a day, titrating as tolerated. Risks, benefits, alternatives reviewed and accepted including the need for therapeutic blood levels - Start Zyprexa 2.5 mg at bedtime titrating as tolerated. Risks, benefits and alternatives were reviewed and accepted including the risk for tardive dyskinesia -Every 15 minute checks for safety -Encourage participation in group and individual counseling, as tolerated -Monitor food intake in view of recent weight loss due to paranoia -Coordinate with case investigator Britta Reed regarding current services and housing -The patient will need psychiatric aftercare -Obtain records from [facility] in [place] where he last received psychiatric services -Family meeting if indicated 05/28 - Increase Zyprexa to 5 mg. daily - Continue depakote - Reality orientation 05/29 --increase Zyprexa to 10 mg hs for mood related psychosis and sleep/ appetite disturbance, more irritable today; ordered Depakote level for 06/02/17. He does not appear to have EPS on exam. (2) Alcohol use disorder 05/27 - AWSS protocol - Recommend abstinence - Consider inpatient rehabilitation or IOP after psychosis treated -Recovery protocol 05/29 --The patient's AUDIT score suggests problematic drinking (Zone III WHO). Brief intervention was offered and limited by patient's condition. Intervention was greater than 5 min in length. Brief interventions include: 1. Assess Readiness to Quit, 2. Advise: Help Patient to Reduce or Abstain from Alcohol, 3. Agree: Set Specific, Feasible Goals, 4. Assist: Anticipate barriers, Problem-Solving Solutions. Social work to 5. Arrange: Referrals to appropriate treatment. Summary of intervention: The patient is in precontemplation stage with regards to transtheoretical model of change. The patient is advised to decrease alcohol consumption due to depressant effects and risk of interactions with prescription medications. The patient expresses interest in abstaining but states only way he will do this is to resume regular MJ use which is also not advised. AWSS has been discontinued and he will be provided recovery materials with the hope that he will be more receptive to additional interventions when mood is more stable. (3) Cannabis abuse 05/27 - Recommend abstinence (4) [facility]. Last prescription for opiates 01/23/[address] Cardoso in [place] -Will order ibuprofen 600 mg 4 times daily when necessary pain 05/28 - Already has Rohit ordered, so no Ibuprofen - Will allow to have his shoes during the day - Will have dietary consult due to gum ulcers under his dentures, for food choices Has been reviewed with Dr. Shirley Sheikh Discharge / Aftercare Planning Primary Care Physician: Name: none currently; used to be [facility] Therapist: Name: none Commercial Teller: Name: Britta Visit Code E&M Code: 01520 Inventory Assets Strengths: Willingness for treatment, has a case investigator, spirituality Needs: to abstain from alcohol and abusable substances Risk Factors Assessment Male: Yes : Yes /single/: Yes Higher / Fall in social status: No Health problems: Yes Mental Health Diagnoses: Yes Substance use disorders: Yes Previous attempt: Yes Previous psychiatric stay: Yes Hopelessness: No Smoker: Yes Protective Factors Assessment Druze beliefs: Yes : No Responsible for young children: No Employed: No Stable relationships: No Data Vital Signs Last 24 Hrs: Date Time Temp Pulse Resp B/P (MAP) Pulse Ox O2 Delivery O2 Flow Rate FiO2 05/29/17 08:59 36.4 67 16 114/68 76 05/29/17 06:49 36.4 67 16 106/74 76 114/68 05/28/17 20:11 36.8 76 16 136/79 05/28/17 17:46 36.8 97 16 156/79 05/28/17 12:47 36.9 79 18 132/88 Meds Administered Last 24 Hrs: Meds Administered (Past 24Hrs) Medications (Trade) Dose Ordered Sig/Adry Route Start Time Stop Time Status Last Admin Dose Admin Gabapentin (Neurontin Tab) 600 mg Q8H PO 05/27/17 18:00 05/28/17 10:01 DC 05/28/17 08:29 600 MG Gabapentin (Neurontin Tab) 600 mg Q12H PO 05/28/17 22:00 05/29/17 08:22 DC 05/28/17 21:32 600 MG Divalproex Sodium (Depakote Delay Rel Tab) 500 mg BID PO 05/27/17 22:00 06/26/17 21:59 05/29/17 08:23 500 MG Olanzapine (Zyprexa Tab) 2.5 mg HS PO 05/27/17 22:00 05/28/17 10:44 DC 05/27/17 21:04 2.5 MG Nicotine (Nicoderm Cq 21MG Patch) 1 patch QAM TD 05/27/17 15:12 06/26/17 15:11 05/28/17 15:32 1 PATCH Benztropine Mesylate (Cogentin Tab) 2 mg NOW ONCE PO 05/28/17 10:45 05/28/17 10:46 DC 05/28/17 11:18 2 MG Olanzapine (Zyprexa Tab) 5 mg HS PO 05/28/17 22:00 05/29/17 10:56 DC 05/28/17 21:33 5 MG Olanzapine (Zyprexa Tab) 2.5 mg TID PRN PO 05/28/17 10:45 05/29/17 10:56 DC 05/28/17 19:53 2.5 MG Problem Qualifiers (1) Chronic pain: Chronic pain type: due to trauma Qualified Codes: G89.21 - Chronic pain due to trauma
[2017-05-29] MEDS: hydrOXYzine HCL 25 MG TAB PO PRN (14:17)
[2017-05-29] MEDS: DICLOFENAC SOD 25 MG TABEC PO PRN ×3 (14:28→21:39)
[2017-05-29] MEDS: OLANZAPINE 10 MG TAB PO SCH (21:19)
[2017-05-29] MEDS: THIAMINE HCL 100 MG TAB PO SCH (21:20)
[2017-05-30] MEDS: LISINOPRIL 2.5 MG TAB PO SCH (07:41)
[2017-05-30] MEDS: PANTOprazole SOD 40 MG TAB PO SCH (07:41)
[2017-05-30] MEDS: DIVALPROEX SODIUM 500 MG DELAY RELEASE TAB PO SCH ×2 (07:41→21:10)
[2017-05-30] MEDS: hydrOXYzine HCL 25 MG TAB PO PRN ×2 (07:42→21:12)
[2017-05-30] MEDS: OLANZAPINE 5 MG TAB PO PRN (07:43)
[2017-05-30] MEDS: BENZOCAINE 20% (ORAJEL) 11.9 GM TUBE MT SCH ×4 (07:53→21:09)
[2017-05-30] MEDS: NICOTINE 21 MG/24 HR TDSY TD SCH (07:54)
[2017-05-30 08:38] VITALS: BP 112/78; PULSE 86; TEMP 36.5
[2017-05-30] MEDS ORDERED: NICOTINE 14 MG/24 HR TDSY TD ONE (09:59)
[2017-05-30] MEDS ORDERED: LORATADINE 10 MG TAB PO ONE (09:59)
[2017-05-30] MEDS ORDERED: GABAPENTIN 600MG Q24H DOSE PO SCH (10:00)
--- NOTE | 2017-05-30 10:05 | Psych Management Progress Note ---
Psychiatry Miscellaneous Date of Service: May 30, 2017. Patient seen, MS assessed. States he didn't attend group as "no one is supportive", related to his paranoia. Cooperative with care and treatment plan as outlined by YAIR.
--- NOTE | 2017-05-30 10:15 | Psychiatric Progress Notes ---
Progress Note Date of Service May 30, 2017. Interval History 46 yo man admitted voluntarily with psychosis. He presents many paranoid delusions of persecution affecting his ability to make reality based decisions. He reports a history of bipolar disorder, with manic episodes and was restarted on Depakote with adjunctive Zyprexa until therapeutic on mood stabilizer. Chief Complaint "I need to get out of here, away from all this negativity.". Subjective Patient was seen & assessed interval progress reviewed with Treatment Team. The patient says that he wants to be discharged on Thursday, feeling agitated about his peers here being "negative", saying he won't go to anymore groups because of it. He has a list of questions and a list of his meds wanting several adjustments. He is paranoid that the saline nasal spray he has been given does not contain saline. is also focused on not taking anything at night that will make him sedated, saying that he has to remain alert to maintain his safety. He is somatically focused, complaining of sinus troubles, dry airway, odd feeling in his lungs, pain in his bones, and an ingrown toenail. He says that his mouth sores have not been able to heal because of the contamination where he was living. he is aware that his dependency case manager will pick him up on Thursday and take him to him new apartment in [place]. He denies aud/vis hallucinations. Denies SI. Review of Systems Constitutional: + problem reported (pain in his bones) ENT: + problem reported Respiratory: + problem reported (an odd feeling in his lungs) Cardiovascular: No chest pain, No orthopnea, No PND, No edema, No claudication , No palpitations, No problem reported Abdomen: No pain, No nausea, No vomiting, No diarrhea, No constipation, No GI bleeding, No problem reported Musculoskeletal: + problem reported (pain in his bones, pain in rt great toe, walks with a cane) Neurologic: No memory loss, No paralysis, No weakness, No numbness/tingling, No vertigo, No balance problems, No problem reported Psychiatric: + problem reported (irritable, paranoid) Integumentary: No rash, No itch, No new/changing skin lesions, No color change , No bleeding, No problem reported Sleep Information Total Hours of Sleep: 7.50 Meal Information Percent of Breakfast Consumed: 100 Percent of Lunch Consumed: 50 Percent of Dinner Consumed: 100 Mental Status Exam During interview pt is: alert and oriented, other (agitated) Appearance: appropriately dressed, appropriately groomed, other (very lean in appearance) Eye contact is: good Motor behavior is: steady gait & station (walks with a cane), tremor Speech: loud (hyperverbal) Affect: irritable Mood is: irritable Thought process: tangential Thought content: paranoid, delusions Suicidal thought are: denied Homicidal thoughts are: denied Hallucinations: denies auditory, denies visual Cognition: other (obscured by psychosis) Intelligence estimated to be: consistent with level of education Insight: impaired Judgement: impaired Impression Still agitated and paranoid, but cooperating with medications. Will oblige the patient with his medication requests including Claritin 10 mg. daily, reducing nicotine patch to 14 mg. have attempted to clarify his meds with him as he had some misunderstanding of them. He will have a depakote level next week. We are hopeful that he can be discharged to his new apartment on Thursday. Plan (1) Bipolar disorder, current episode manic severe with psychotic features 05/27 - Start Depakote ER 500 mg twice a day, titrating as tolerated. Risks, benefits, alternatives reviewed and accepted including the need for therapeutic blood levels - Start Zyprexa 2.5 mg at bedtime titrating as tolerated. Risks, benefits and alternatives were reviewed and accepted including the risk for tardive dyskinesia -Every 15 minute checks for safety -Encourage participation in group and individual counseling, as tolerated -Monitor food intake in view of recent weight loss due to paranoia -Coordinate with dependency case manager Britta Reed regarding current services and housing -The patient will need psychiatric aftercare -Obtain records from [facility] in [place] where he last received psychiatric services -Family meeting if indicated 05/28 - Increase Zyprexa to 5 mg. daily - Continue depakote - Reality orientation 05/29 --increase Zyprexa to 10 mg hs for mood related psychosis and sleep/ appetite disturbance, more irritable today; ordered Depakote level for 06/02/17. He does not appear to have EPS on exam. 05/30 - Continue current meds - Reality orientation (2) Alcohol use disorder 05/27 - AWSS protocol - Recommend abstinence - Consider inpatient rehabilitation or IOP after psychosis treated -Recovery protocol 05/29 --The patient's AUDIT score suggests problematic drinking (Zone III WHO). Brief intervention was offered and limited by patient's condition. Intervention was greater than 5 min in length. Brief interventions include: 1. Assess Readiness to Quit, 2. Advise: Help Patient to Reduce or Abstain from Alcohol, 3. Agree: Set Specific, Feasible Goals, 4. Assist: Anticipate barriers, Problem-Solving Solutions. Social work to 5. Arrange: Referrals to appropriate treatment. Summary of intervention: The patient is in precontemplation stage with regards to transtheoretical model of change. The patient is advised to decrease alcohol consumption due to depressant effects and risk of interactions with prescription medications. The patient expresses interest in abstaining but states only way he will do this is to resume regular MJ use which is also not advised. AWSS has been discontinued and he will be provided recovery materials with the hope that he will be more receptive to additional interventions when mood is more stable. (3) Cannabis abuse 05/27 - Recommend abstinence (4) Chronic pain 05/27 -[facility] site queried. Last prescription for opiates 01/23/[address] Cardoso in [place] -Will order ibuprofen 600 mg 4 times daily when necessary pain 05/28 - Already has Voltaren ordered, so no Ibuprofen - Will allow to have his shoes during the day - Will have dietary consult due to gum ulcers under his dentures, for food choices (5) Tobacco abuse 05/30 - Reduce nicotine patch to 14 mg Has been reviewed with Dr. Shirley Sheikh Discharge / Aftercare Planning Primary Care Physician: Name: [facility] Date of Appointment: Jun 25, 2017 Time of Appointment: 9:45 Psychiatrist: Name: Franklin Morin Date of Appointment: Jul 13, 2017 Time of Appointment: 11:00am Therapist: Name: [employer] Person: Name: Britta Reed Date of Appointment: Jun 01, 2017 Appointment Notes: at discharge Visit Code E&M Code: 31032 Inventory Assets Strengths: Willingness for treatment, has a dependency case manager, spirituality Needs: to abstain from alcohol and abusable substances Risk Factors Assessment Male: Yes : Yes /single/: Yes Higher / Fall in social status: No Health problems: Yes Mental Health Diagnoses: Yes Substance use disorders: Yes Previous attempt: Yes Previous psychiatric stay: Yes Hopelessness: No Smoker: Yes Protective Factors Assessment Quaker beliefs: Yes : No Responsible for young children: No Employed: No Stable relationships: No Data Vital Signs Last 24 Hrs: Date Time Temp Pulse Resp B/P (MAP) Pulse Ox O2 Delivery O2 Flow Rate FiO2 05/30/17 08:38 36.5 86 16 112/78 Meds Administered Last 24 Hrs: Meds Administered (Past 24Hrs) Medications (Trade) Dose Ordered Sig/Adry Route Start Time Stop Time Status Last Admin Dose Admin Gabapentin (Neurontin Tab) 600 mg Q12H PO 05/28/17 22:00 05/29/17 08:22 DC 05/28/17 21:32 600 MG Benztropine Mesylate (Cogentin Tab) 2 mg NOW ONCE PO 05/28/17 10:45 05/28/17 10:46 DC 05/28/17 11:18 2 MG Olanzapine (Zyprexa Tab) 5 mg HS PO 05/28/17 22:00 05/29/17 10:56 DC 05/28/17 21:33 5 MG Olanzapine (Zyprexa Tab) 2.5 mg TID PRN PO 05/28/17 10:45 05/29/17 10:56 DC 05/28/17 19:53 2.5 MG Olanzapine (Zyprexa Tab) 10 mg HS PO 05/29/17 22:00 06/27/17 21:59 05/29/17 21:19 10 MG Olanzapine (Zyprexa Tab) 5 mg TID PRN PO 05/29/17 14:00 06/27/17 10:44 05/30/17 07:43 5 MG Lab Results Last 24 Hrs: 05/26/17 11:53 Red Blood Count 4.39, Mean Corpuscular Volume 95.7, Mean Corpuscular Hemoglobin 32.1, Mean Corpuscular Hemoglobin Concent 33.6, Mean Platelet Volume 10.2, Neutrophils (%) (Auto) 70.5, Lymphocytes (%) (Auto) 19.1, Monocytes (%) (Auto) 8.7, Eosinophils (%) (Auto) 0.7, Basophils (%) (Auto) 0.9, Neutrophils # (Auto) 5.19, Lymphocytes # (Auto) 1.41, Monocytes # (Auto) 0.64, Eosinophils # (Auto) 0.05, Basophils # (Auto) 0.07 05/26/17 11:53 Test 05/26/17 11:53 05/26/17 12:01 05/26/17 12:30 05/28/17 06:51 White Blood Count 7.37 K/uL (4.8-10.8) Red Blood Count 4.39 M/uL (4.7-6.1) Hemoglobin 14.1 g/dL (14.0-18.0) Hematocrit 42.0 % (42-52) Mean Corpuscular Volume 95.7 fL (80-100) Mean Corpuscular Hemoglobin 32.1 pg (25-34) Mean Corpuscular Hemoglobin Concent 33.6 g/dl (32-36) Platelet Count 265 K/uL (130-400) Mean Platelet Volume 10.2 fL (7.4-10.4) Neutrophils (%) (Auto) 70.5 % Lymphocytes (%) (Auto) 19.1 % Monocytes (%) (Auto) 8.7 % Eosinophils (%) (Auto) 0.7 % Basophils (%) (Auto) 0.9 % Neutrophils # (Auto) 5.19 K/uL (1.4-6.5) Lymphocytes # (Auto) 1.41 K/uL (1.2-3.4) Monocytes # (Auto) 0.64 K/uL (0.11-0.59) Eosinophils # (Auto) 0.05 K/uL (0-0.5) Basophils # (Auto) 0.07 K/uL (0-0.2) RDW Standard Deviation 48.0 fL (36.4-46.3) RDW Coefficient of Variation 13.6 % (11.5-14.5) Immature Granulocyte % (Auto) 0.1 % Immature Granulocyte # (Auto) 0.01 K/uL (0.00-0.02) Anion Gap 7.0 mmol/L (3-11) Est Creatinine Clear Calc Drug Dose 95.7 ml/min Estimated GFR () 120.0 Estimated GFR (Non- 103.5 BUN/Creatinine Ratio 10.3 (10-20) Calcium Level 8.6 mg/dl (8.5-10.1) Total Bilirubin 1.0 mg/dl (0.2-1) Direct Bilirubin 0.2 mg/dl (0-0.2) Aspartate Amino Transf (AST/SGOT) 49 U/L (15-37) Alanine Aminotransferase (ALT/SGPT) 61 U/L (12-78) Alkaline Phosphatase 87 U/L (45-117) Total Protein 7.3 gm/dl (6.4-8.2) Albumin 3.8 gm/dl (3.4-5.0) Thyroid Stimulating Hormone (TSH) 0.503 uIu/ml (0.300-4.500) Salicylates Level 3.6 mg/dl (2.8-20) Acetaminophen Level < 2 ug/ml (10-30) Ethyl Alcohol mg/dL < 3.0 mg/dl (0-3) Bedside Glucose 97 mg/dl (70-99) Urine Color YELLOW Urine Appearance CLEAR (CLEAR) Urine pH 7.0 (4.5-7.5) Urine Specific [place] 1.015 (1.000-1.030) Urine Protein NEG (NEG) Urine Glucose (UA) NEG (NEG) Urine Ketones 1+ (NEG) Urine Occult Blood NEG (NEG) Urine Nitrite NEG (NEG) Urine Bilirubin NEG (NEG) Urine Urobilinogen NEG (NEG) Urine Leukocyte Esterase SMALL (NEG) Urine WBC (Auto) 1-5 /hpf (0-5) Urine RBC (Auto) 0-4 /hpf (0-4) Urine Hyaline Casts (Auto) 1-5 /lpf (0-5) Urine Epithelial Cells (Auto) 0-5 /lpf (0-5) Urine Bacteria (Auto) NEG (NEG) Urine Opiates Screen NEG (NEG) Urine Methadone, Qualitative NEG (NEG) Urine Barbiturates NEG (NEG) Urine Phencyclidine (PCP) Level NEG (NEG) Ur Amphetamine/Methamphetamine NEG (NEG) MDMA (Ecstasy) Screen NEG (NEG) Urine Benzodiazepines Screen NEG (NEG) Urine Cocaine Metabolite NEG (NEG) Urine Marijuana (THC) POS (NEG) Urine Marijuana (THC Carboxy Acid) 137 NG/ML (CUTOFF=5) Fasting Glucose 94 mg/dl (70-99) Triglycerides Level 101 mg/dl (0-150) Cholesterol Level 145 mg/dl (0-200) HDL Cholesterol 70 mg/dl LDL Cholesterol, Calculated 55 mg/dl VLDL Cholesterol, Calculated 20 mg/dl Cholesterol/HDL Ratio 2.1 Problem Qualifiers (1) Chronic pain: Chronic pain type: due to trauma Qualified Codes: G89.21 - Chronic pain due to trauma
[2017-05-30] MEDS: MAGNESIUM HYDROXIDE SUSP 30 ML UDC PO PRN (10:20)
[2017-05-30] MEDS: THIAMINE HCL 100 MG TAB PO SCH (21:09)
[2017-05-30] MEDS: OLANZAPINE 10 MG TAB PO SCH (21:10)
[2017-05-30] MEDS: PSEUDOEPHEDRINE HCL 30 MG TAB PO PRN (21:12)
[2017-05-30] MEDS: DICLOFENAC SOD 25 MG TABEC PO PRN (21:17)
[2017-05-31 07:02] VITALS: BP_SYST 105; BP_SYST 99; BP_DIAS 67; BP_DIAS 69; PULSE 73; PULSE 75; TEMP 36.8
[2017-05-31] MEDS: DIVALPROEX SODIUM 500 MG DELAY RELEASE TAB PO SCH ×2 (08:20→20:57)
[2017-05-31] MEDS: PANTOprazole SOD 40 MG TAB PO SCH (08:20)
[2017-05-31] MEDS: LISINOPRIL 2.5 MG TAB PO SCH (08:20)
[2017-05-31] MEDS: LORATADINE 10 MG TAB PO SCH (08:20)
[2017-05-31 08:21] VITALS: BP 99/67; PULSE 73; PULSE 75; TEMP 36.8
[2017-05-31] MEDS: NICOTINE 14 MG/24 HR TDSY TD SCH (08:21)
[2017-05-31] MEDS: hydrOXYzine HCL 25 MG TAB PO PRN ×2 (08:23→21:02)
[2017-05-31] MEDS: DICLOFENAC SOD 25 MG TABEC PO PRN ×2 (08:24→21:24)
[2017-05-31] MEDS: BENZOCAINE 20% (ORAJEL) 11.9 GM TUBE MT SCH ×4 (08:30→20:58)
--- NOTE | 2017-05-31 09:16 | Psychiatric Progress Notes ---
Progress Note Date of Service May 31, 2017. Interval History 46 yo man admitted voluntarily with psychosis. He presents many paranoid delusions of persecution affecting his ability to make reality based decisions. He reports a history of bipolar disorder, with manic episodes and was restarted on Depakote with adjunctive Zyprexa until therapeutic on mood stabilizer. Chief Complaint "I know what's going on with my back.". Subjective Patient was seen & assessed interval progress reviewed with Treatment Team. The patient is in better spirits today, less irritable. He is reading a book about back pain, and thinks that he knows what's going on with his back. In discussion, he says that he has had a full work up including injections, PT and meds. MRI revealed ruptured discs, but says that the recommendations for surgery came with a risk for being paralyzed which he is not willing to take. He says that his back, hip and lt leg pain "come and go". Having his shoes has helped. He is looking forward to going to his new apt tomorrow and says that he will clean it from top to bottom, "I like a clean area.". He is denying any SI/HI, aud/vis hallucinations. Although not voicing clear paranoid statements, he is suspicious that his shelter case manager gave him 2 different addresses for his new apt. Review of Systems Constitutional: No fever, No chills, No sweats, No weight loss, No weakness, No fatigue, No problem reported ENT: No hearing loss, No unusual epistaxis, No nasal symptoms, No sore throat, No tinnitus, No dental problems, No trouble swallowing, No problem reported Respiratory: No cough, No sputum, No wheezing, No shortness of breath, No dyspnea on exertion, No dyspnea at rest, No hemoptysis, No problem reported Cardiovascular: No chest pain, No orthopnea, No PND, No edema, No claudication , No palpitations, No problem reported Abdomen: + constipation (moved bowels yesterday) Musculoskeletal: + joint pain, + muscle pain (lower back, left hip and left leg ) Neurologic: No memory loss, No paralysis, No weakness, No numbness/tingling, No vertigo, No balance problems, No problem reported Psychiatric: + problem reported (suspiciousness) Integumentary: + problem reported (cracked skin on fingers, tattoos) Sleep Information Total Hours of Sleep: 7.50 Meal Information Percent of Breakfast Consumed: 100 Percent of Lunch Consumed: 90 Percent of Dinner Consumed: 100 Mental Status Exam During interview pt is: alert and oriented, cooperative Appearance: appropriately dressed, appropriately groomed, other (very lean in appearance) Eye contact is: good Motor behavior is: steady gait & station (walks with a cane), tremor Speech: normal in rate, rhythm & volume Affect: blunted, irritable Mood is: other ("good") Thought process: goal directed Thought content: paranoid Suicidal thought are: denied Homicidal thoughts are: denied Hallucinations: denies auditory, denies visual Cognition: other (obscured by psychosis) Intelligence estimated to be: consistent with level of education Insight: impaired Judgement: impaired Impression Improved today. Is less irritable, but still mildly suspicious. He believes that the depakote is working, saying it worked for him in the past. He is forward thinking, and voicing commitment to staying in treatment, and attending all appts. He has not been attending groups, saying that groups and peers are too negative. He has been reading his bible. we anticipate that he can be discharged tomorrow, and his shelter case manager is available to pick him up to transport to his [facility]. Plan (1) Bipolar disorder, current episode manic severe with psychotic features 05/27 - Start Depakote ER 500 mg twice a day, titrating as tolerated. Risks, benefits, alternatives reviewed and accepted including the need for therapeutic blood levels - Start Zyprexa 2.5 mg at bedtime titrating as tolerated. Risks, benefits and alternatives were reviewed and accepted including the risk for tardive dyskinesia -Every 15 minute checks for safety -Encourage participation in group and individual counseling, as tolerated -Monitor food intake in view of recent weight loss due to paranoia -Coordinate with shelter case manager Britta Reed regarding current services and housing -The patient will need psychiatric aftercare -Obtain records from [facility] in [place] where he last received psychiatric services -Family meeting if indicated 05/28 - Increase Zyprexa to 5 mg. daily - Continue depakote - Reality orientation 05/29 --increase Zyprexa to 10 mg hs for mood related psychosis and sleep/ appetite disturbance, more irritable today; ordered Depakote level for 06/02/17. He does not appear to have EPS on exam. 05/30 - Continue current meds - Reality orientation 05/31 - Continue current meds - Depakote level on Thursday (2) Alcohol use disorder 05/27 - AWSS protocol - Recommend abstinence - Consider inpatient rehabilitation or IOP after psychosis treated -Recovery protocol 05/29 --The patient's AUDIT score suggests problematic drinking (Zone III WHO). Brief intervention was offered and limited by patient's condition. Intervention was greater than 5 min in length. Brief interventions include: 1. Assess Readiness to Quit, 2. Advise: Help Patient to Reduce or Abstain from Alcohol, 3. Agree: Set Specific, Feasible Goals, 4. Assist: Anticipate barriers, Problem-Solving Solutions. Social work to 5. Arrange: Referrals to appropriate treatment. Summary of intervention: The patient is in precontemplation stage with regards to transtheoretical model of change. The patient is advised to decrease alcohol consumption due to depressant effects and risk of interactions with prescription medications. The patient expresses interest in abstaining but states only way he will do this is to resume regular MJ use which is also not advised. AWSS has been discontinued and he will be provided recovery materials with the hope that he will be more receptive to additional interventions when mood is more stable. (3) Cannabis abuse 05/27 - Recommend abstinence (4) Chronic pain 05/27 -[facility] site queried. Last prescription for opiates 01/23/[address] Cardoso in [place] -Will order ibuprofen 600 mg 4 times daily when necessary pain 05/28 - Already has Voltaren ordered, so no Ibuprofen - Will allow to have his shoes during the day - Will have dietary consult due to gum ulcers under his dentures, for food choices (5) Tobacco abuse 05/30 - Reduce nicotine patch to 14 mg Has been reviewed with Dr. Shirley Sheikh Discharge / Aftercare Planning Primary Care Physician: Name: MATT Campoverde [facility] Date of Appointment: Jun 25, 2017 Time of Appointment: 9:45 Psychiatrist: Name: Franklin Morin Date of Appointment: Jul 13, 2017 Time of Appointment: 11:00am Therapist: Name: none [place]: Name: Britta Reed Date of Appointment: Jun 01, 2017 Appointment Notes: at discharge Visit Code E&M Code: 19297 Inventory Assets Strengths: Willingness for treatment, has a shelter case manager, spirituality Needs: to abstain from alcohol and abusable substances Risk Factors Assessment Male: Yes : Yes /single/: Yes Higher / Fall in social status: No Health problems: Yes Mental Health Diagnoses: Yes Substance use disorders: Yes Previous attempt: Yes Previous psychiatric stay: Yes Hopelessness: No Smoker: Yes Protective Factors Assessment Taoism beliefs: Yes : No Responsible for young children: No Employed: No Stable relationships: No Data Vital Signs Last 24 Hrs: Date Time Temp Pulse Resp B/P (MAP) Pulse Ox O2 Delivery O2 Flow Rate FiO2 05/31/17 08:21 36.8 73 17 99/67 75 05/31/17 07:02 36.8 73 17 105/69 75 99/67 Meds Administered Last 24 Hrs: Meds Administered (Past 24Hrs) Medications (Trade) Dose Ordered Sig/Adry Route Start Time Stop Time Status Last Admin Dose Admin Olanzapine (Zyprexa Tab) 10 mg HS PO 05/29/17 22:00 06/27/17 21:59 05/30/17 21:10 10 MG Olanzapine (Zyprexa Tab) 5 mg TID PRN PO 05/29/17 14:00 06/27/17 10:44 05/30/17 07:43 5 MG Pseudoephedrine HCl (Sudafed Tab) 30 mg Q6H PRN PO 05/29/17 11:00 06/28/17 10:59 05/30/17 21:12 30 MG Loratadine (Claritin Tab) 10 mg QAM PO 05/31/17 09:00 06/30/17 08:59 05/31/17 08:20 10 MG Loratadine (Claritin Tab) 10 mg 0959 ONCE PO 05/30/17 09:59 05/30/17 10:05 DC 05/30/17 10:18 10 MG Nicotine (Nicoderm Cq 14MG Patch) 1 patch QAM TD 05/31/17 09:00 06/30/17 08:59 05/31/17 08:21 1 PATCH Nicotine (Nicoderm Cq 14MG Patch) 1 patch 0959 ONCE TD 05/30/17 09:59 05/30/17 10:05 DC 05/30/17 10:36 1 PATCH Lab Results Last 24 Hrs: 05/26/17 11:53 Red Blood Count 4.39, Mean Corpuscular Volume 95.7, Mean Corpuscular Hemoglobin 32.1, Mean Corpuscular Hemoglobin Concent 33.6, Mean Platelet Volume 10.2, Neutrophils (%) (Auto) 70.5, Lymphocytes (%) (Auto) 19.1, Monocytes (%) (Auto) 8.7, Eosinophils (%) (Auto) 0.7, Basophils (%) (Auto) 0.9, Neutrophils # (Auto) 5.19, Lymphocytes # (Auto) 1.41, Monocytes # (Auto) 0.64, Eosinophils # (Auto) 0.05, Basophils # (Auto) 0.07 05/26/17 11:53 Test 05/26/17 11:53 05/26/17 12:01 05/26/17 12:30 05/28/17 06:51 White Blood Count 7.37 K/uL (4.8-10.8) Red Blood Count 4.39 M/uL (4.7-6.1) Hemoglobin 14.1 g/dL (14.0-18.0) Hematocrit 42.0 % (42-52) Mean Corpuscular Volume 95.7 fL (80-100) Mean Corpuscular Hemoglobin 32.1 pg (25-34) Mean Corpuscular Hemoglobin Concent 33.6 g/dl (32-36) Platelet Count 265 K/uL (130-400) Mean Platelet Volume 10.2 fL (7.4-10.4) Neutrophils (%) (Auto) 70.5 % Lymphocytes (%) (Auto) 19.1 % Monocytes (%) (Auto) 8.7 % Eosinophils (%) (Auto) 0.7 % Basophils (%) (Auto) 0.9 % Neutrophils # (Auto) 5.19 K/uL (1.4-6.5) Lymphocytes # (Auto) 1.41 K/uL (1.2-3.4) Monocytes # (Auto) 0.64 K/uL (0.11-0.59) Eosinophils # (Auto) 0.05 K/uL (0-0.5) Basophils # (Auto) 0.07 K/uL (0-0.2) RDW Standard Deviation 48.0 fL (36.4-46.3) RDW Coefficient of Variation 13.6 % (11.5-14.5) Immature Granulocyte % (Auto) 0.1 % Immature Granulocyte # (Auto) 0.01 K/uL (0.00-0.02) Anion Gap 7.0 mmol/L (3-11) Est Creatinine Clear Calc Drug Dose 95.7 ml/min Estimated GFR () 120.0 Estimated GFR (Non- 103.5 BUN/Creatinine Ratio 10.3 (10-20) Calcium Level 8.6 mg/dl (8.5-10.1) Total Bilirubin 1.0 mg/dl (0.2-1) Direct Bilirubin 0.2 mg/dl (0-0.2) Aspartate Amino Transf (AST/SGOT) 49 U/L (15-37) Alanine Aminotransferase (ALT/SGPT) 61 U/L (12-78) Alkaline Phosphatase 87 U/L (45-117) Total Protein 7.3 gm/dl (6.4-8.2) Albumin 3.8 gm/dl (3.4-5.0) Thyroid Stimulating Hormone (TSH) 0.503 uIu/ml (0.300-4.500) Salicylates Level 3.6 mg/dl (2.8-20) Acetaminophen Level < 2 ug/ml (10-30) Ethyl Alcohol mg/dL < 3.0 mg/dl (0-3) Bedside Glucose 97 mg/dl (70-99) Urine Color YELLOW Urine Appearance CLEAR (CLEAR) Urine pH 7.0 (4.5-7.5) Urine Specific [place] 1.015 (1.000-1.030) Urine Protein NEG (NEG) Urine Glucose (UA) NEG (NEG) Urine Ketones 1+ (NEG) Urine Occult Blood NEG (NEG) Urine Nitrite NEG (NEG) Urine Bilirubin NEG (NEG) Urine Urobilinogen NEG (NEG) Urine Leukocyte Esterase SMALL (NEG) Urine WBC (Auto) 1-5 /hpf (0-5) Urine RBC (Auto) 0-4 /hpf (0-4) Urine Hyaline Casts (Auto) 1-5 /lpf (0-5) Urine Epithelial Cells (Auto) 0-5 /lpf (0-5) Urine Bacteria (Auto) NEG (NEG) Urine Opiates Screen NEG (NEG) Urine Methadone, Qualitative NEG (NEG) Urine Barbiturates NEG (NEG) Urine Phencyclidine (PCP) Level NEG (NEG) Ur Amphetamine/Methamphetamine NEG (NEG) MDMA (Ecstasy) Screen NEG (NEG) Urine Benzodiazepines Screen NEG (NEG) Urine Cocaine Metabolite NEG (NEG) Urine Marijuana (THC) POS (NEG) Urine Marijuana (THC Carboxy Acid) 137 NG/ML (CUTOFF=5) Fasting Glucose 94 mg/dl (70-99) Triglycerides Level 101 mg/dl (0-150) Cholesterol Level 145 mg/dl (0-200) HDL Cholesterol 70 mg/dl LDL Cholesterol, Calculated 55 mg/dl VLDL Cholesterol, Calculated 20 mg/dl Cholesterol/HDL Ratio 2.1 Problem Qualifiers (1) Chronic pain: Chronic pain type: due to trauma Qualified Codes: G89.21 - Chronic pain due to trauma
[2017-05-31] MEDS: ACETAMINOPHEN 325 MG TAB PO PRN ×2 (12:10→19:23)
[2017-05-31] MEDS: PSEUDOEPHEDRINE HCL 30 MG TAB PO PRN (19:17)
[2017-05-31] MEDS: THIAMINE HCL 100 MG TAB PO SCH (20:57)
[2017-05-31] MEDS: OLANZAPINE 10 MG TAB PO SCH (20:57)
[2017-06-01] MEDS: ACETAMINOPHEN 325 MG TAB PO PRN (06:24)
[2017-06-01 06:50] VITALS: BP_SYST 117; BP_SYST 120; BP_DIAS 73; BP_DIAS 83; PULSE 83; PULSE 96; TEMP 36.9
[2017-06-01] MEDS: LORATADINE 10 MG TAB PO SCH (07:52)
[2017-06-01] MEDS: PANTOprazole SOD 40 MG TAB PO SCH (07:52)
[2017-06-01] MEDS: DIVALPROEX SODIUM 500 MG DELAY RELEASE TAB PO SCH (07:53)
[2017-06-01] MEDS: LISINOPRIL 2.5 MG TAB PO SCH (07:53)
[2017-06-01] MEDS: NICOTINE 14 MG/24 HR TDSY TD SCH (07:56)
[2017-06-01] MEDS: BENZOCAINE 20% (ORAJEL) 11.9 GM TUBE MT SCH (07:57)
[2017-06-01] MEDS: PSEUDOEPHEDRINE HCL 30 MG TAB PO PRN (08:44)
[2017-06-01] MEDS: hydrOXYzine HCL 25 MG TAB PO PRN (08:45)
[2017-06-01] MEDS: OLANZAPINE 5 MG TAB PO PRN (08:45)
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
[2017-06-01] MEDS ORDERED: ZYP10 PO (09:12)
[2017-06-01] MEDS ORDERED: NICO14DI5 TD (09:12)
[2017-06-01] MEDS ORDERED: HYDR25CA PO (09:12)
[2017-06-01] MEDS ORDERED: [UNRECOGNIZED DRUG - CODE] PO (09:12)
[2017-06-01] MEDS ORDERED: CLR10 PO (09:12)
[2017-06-01] MEDS ORDERED: DPKEC500 PO (09:12)
[2017-06-01 09:13] VITALS: BP 120/73; PULSE 83; PULSE 96; TEMP 36.9
[2017-06-01] MEDS: DICLOFENAC SOD 25 MG TABEC PO PRN (09:39)
== END 2017-06-01 10:10 | disposition home or self-care (01) | DRG 885 ==
LOC: C.EDB 10:43 → C.MHU 17:18
PROVIDERS: ADMIT Psychiatry & Neurology Psychiatry; ATTEND Psychiatry & Neurology Psychiatry
DX: F30.2 Manic episode, severe with psychotic symptoms (principal); I25.2 Old myocardial infarction; F12.10 Cannabis abuse, uncomplicated; F10.10 Alcohol abuse, uncomplicated; Z91.14 Patient's other noncompliance with medication regimen; G89.29 Other chronic pain

== ENCOUNTER → 2017-08-11 | Outpatient (CLI) | payer OTHER ==
[~2017-08-11] MED LIST changes: -ALAVERT D12 PO; +CLR10 PO; +DPKEC500 PO; -HYDR-3124 PO; +HYDR25CA PO; -LIDOPOW; -MBXC PO; -NABU500T3 PO; +NICO14DI5 TD; -NYSS/ PO; -Proair HFA INH; +ZYP10 PO; +[UNRECOGNIZED DRUG - CODE] PO
[2017-08-11 18:24] LABS: ALT/SGPT 35 U/L (12-78); BLOOD UREA NITROGEN 11 mg/dl (7-18); BUN/CREATININE RATIO 10.9 (10-20); CALCIUM 9.4 mg/dl (8.5-10.1); CARBON DIOXIDE 29 mmol/L (21-32); CHLORIDE 102 mmol/L (98-107); CHOLESTEROL 125 mg/dl (0-200); CREATININE 1.02 mg/dl (0.60-1.40); GLUCOSE 89 mg/dl (70-99); POTASSIUM 4.4 mmol/L (3.5-5.1); SODIUM 136 mmol/L (136-145)
[2017-08-11 18:27] LABS: ALB/GLOB RATIO 1.1 (0.9-2); ALKALINE PHOSPHATASE 90 U/L (45-117); AST/SGOT 19 U/L (15-37); CHOLESTEROL/HDL RATIO 2.3; HDL CHOLESTEROL 54 mg/dl; LDL CHOLESTEROL CALCULATED 49 mg/dl; TRIGLYCERIDES 110 mg/dl (0-150); VERY LOW DENSITY LIPOPROT CALC 22 mg/dl
== END | disposition home or self-care (01) ==
LOC: C.LABPBG 14:41
PROVIDERS: ATTEND Physician Assistant
DX: Z00.00 Encounter for general adult medical examination without abnormal findings (principal)

== ENCOUNTER 2017-09-12 04:39 | Emergency (ER) | payer OTHER ==
[~2017-09-12] VITALS: Ht 167.6 cm; Wt 65.2 kg
[~2017-09-12 04:39] MED LIST changes: +ACYC-57 PO; -ACYC1CAP8 PO
[2017-09-12 04:41] VITALS: Ht 167.6 cm; Wt 65.2 kg
[2017-09-12] MEDS ORDERED: DIPH25TA2 PO (05:01)
[2017-09-12] MEDS ORDERED: B-COTAB18 PO (05:02)
[2017-09-12] MEDS ORDERED: VITACAP26 PO (05:02)
[2017-09-12] MEDS ORDERED: OMEG10007 PO (05:03)
[2017-09-12] MEDS ORDERED: VITA1TAB12 PO (05:04)
[2017-09-12] MEDS ORDERED: GLUCTAB7 PO (05:06)
[2017-09-12] MEDS ORDERED: CHOL1000 PO (05:07)
[2017-09-12] MEDS ORDERED: [UNRECOGNIZED DRUG - OTHER] PO (05:08)
[2017-09-12] MEDS ORDERED: MELATAB2 PO (05:09)
[2017-09-12] MEDS ORDERED: ONDANSETRON INJ 2 MG/ML 2 ML VIAL IV STA (05:29)
[2017-09-12] MEDS ORDERED: MoRPHine SULFATE 10 MG/ML CARP/VIAL IV STA (05:29)
[2017-09-12 05:34] LABS: URINE APPEARANCE CLEAR (CLEAR); URINE BILIRUBIN NEG (NEG); URINE COLOR YELLOW; URINE NITRITE NEG (NEG); URINE PH 5.5 (4.5-7.5); URINE SPECIFIC GRAVITY 1.015 (1.000-1.030); UROBILINOGEN NEG (NEG); ZZUR CULT IF INDIC CLEAN CATCH NO
[2017-09-12 05:45] LABS: BUN/CREATININE RATIO 11.3 (10-20); CALCIUM 8.9 mg/dl (8.5-10.1); CREATININE 0.9 mg/dl (0.60-1.40); POTASSIUM 4.1 mmol/L (3.5-5.1)
[2017-09-12 05:46] LABS: BASO % 0.3 %; BASO ABS # 0.05 K/uL (0-0.2); COMPLETE YES; EOS % 1.3 %; HEMATOCRIT 42.6 % (42-52); IG% 0.3 %; LYMPH % 10.4 %; LYMPH ABS # 1.64 K/uL (1.2-3.4); MEAN CELL VOLUME 96.4 fL (80-100); MEAN CORPUSCULAR HEMOGLOBIN 33.7 pg (25-34); MONO % 8.1 %; NEUT % 79.6 %; PLATELET COUNT 164 K/uL (130-400); RED BLOOD COUNT 4.42 M/uL (4.7-6.1); WHITE BLOOD COUNT 15.77 K/uL (4.8-10.8)
[2017-09-12 05:49] LABS: MANUAL MICROSCOPIC REQUIRED? NO; REVIEW REQ? NO
[2017-09-12] MEDS ORDERED: METRONIDAZOLE 500MG / NSS IV SCH (06:00)
[2017-09-12] MEDS ORDERED: CIPROFLOXACIN 400MG / 200ML D5W IV SCH (06:00)
--- NOTE | 2017-09-12 08:20 | DIAGNOSTIC IMAGING REPORT ---
CT OF THE ABDOMEN AND PELVIS WITHOUT CONTRAST CLINICAL HISTORY: Right lower quadrant pain. COMPARISON STUDY: No previous studies for comparison. TECHNIQUE: Axial images of the abdomen and pelvis were obtained without IV contrast due to iodinated contrast dye allergy. Images were reviewed in the axial, sagittal, and coronal planes. A dose lowering technique was utilized adhering to the principles of ALARA. FINDINGS: Mild emphysema is noted within visualized portions of the lungs. Groundglass opacities reflect atelectasis. No pneumatosis, free air or portal venous gas is present. Evaluation of the abdomen and pelvis is suboptimal on this unenhanced exam. The liver, spleen, adrenal glands, kidneys and pancreas are within normal limits. There is no hydronephrosis. The appendix is markedly dilated, measuring 1.6 cm in caliber. An appendicolith within the appendiceal base is noted. There is moderate periappendiceal infiltration. There is no free air or abscess. There is no evidence for a bowel obstruction. Postsurgical findings within the lower anterior abdomen are noted. Trace fluid within the pelvis. No suspicious osseous lesion is present. IMPRESSION: Findings consistent with acute appendicitis. Dilated appendix which contains an appendicolith. Moderate periappendiceal infiltration with no free air or abscess. Electronically signed by: Kavin Sepulveda M.D. 09/12/2017 8:18 AM Dictated Date/Time: 09/12/2017 8:15 AM
[2017-09-12] MEDS ORDERED: METRONIDAZOLE 500MG / 100ML NSS IV STA (08:23)
--- NOTE | 2017-09-12 08:23 | Surgery Consultation ---
Consultation Date of Consultation: Sep 12, 2017. Attending Physician: History of Present Illness pt is a 47 year old male who presents to ER for 1 day history RLQ pain, with nausea, no vomiting, last BM yesterday, pt denies fever, no diarrhea, Past Medical/Surgical History Medical Problems: (1) Acute psychosis Status: Acute (2) Alcoholism Status: Acute (3) Aphthous ulcer of mouth Status: Acute (4) Dermatitis Status: Acute (5) GERD with esophagitis Status: Acute (6) Noncompliance Status: Acute (7) Pharyngitis Status: Acute Family History Patient reports no known family medical history. Social History Smoking Status: Current Every Day Smoker Smokeless Tobacco Use: No Alcohol Use: occasionally Drug Use: none, marijuana Marital Status: single Occupation Status: disabled Allergies Coded Allergies: Iodinated Diagnostic Agents (Verified Allergy, Severe, ANAPHYLAXIS, 05/26/17 ) Cephalexin (Verified Allergy, Intermediate, Rash and hives, 05/26/17) Home Medications Scheduled B-Complex Vitamins (Vitamin B Complex), 1 TAB PO DAILY Cholecalciferol (Vitamin D3), 3,000 MG PO DAILY Diphenhydramine Hcl (Allergy Relief), 1 TAB PO DAILY Fish Oil ([place]-3), 1 CAP PO DAILY Aflcuwzgioo-Lmjdgoniggk-Opi C- (Glucosamine Chondroitin), 1 TAB PO DAILY Melatonin (Melatonin Maximum Strengt), 5 MG PO HS Pantoprazole (Protonix), 40 MG PO DAILY Vitamin E (Vitamin E), Unknown Dose PO DAILY Vitamins C & E (Vitamin C), 1 CAP PO DAILY [volarian root], 1 TAB PO DAILY Scheduled PRN Nitroglycerin (Nitrostat), 0.4 MG UT UD PRN for Chest Pain Review of Systems Constitutional: No fever, No chills, No sweats, No weight loss, No weakness, No fatigue, No problem reported Eyes: No worsening of vision, No eye pain, No redness, No discharge, No diplopia, No problem reported ENT: No hearing loss, No unusual epistaxis, No nasal symptoms, No sore throat, No tinnitus, No dental problems, No trouble swallowing, No problem reported Respiratory: No cough, No sputum, No wheezing, No shortness of breath, No dyspnea on exertion, No dyspnea at rest, No hemoptysis, No problem reported Cardiovascular: No chest pain, No orthopnea, No PND, No edema, No claudication , No palpitations, No problem reported Abdomen: + pain, + nausea, + problem reported (bilt inguinal hernia repair) Musculoskeletal: + problem reported (shoulder surgery), No joint pain, No muscle pain, No swelling, No calf pain Genitourinary - Male: No hematuria, No dysuria, No urinary frequency, No urinary urgency, No urinary hesitancy, No urinary retention, No urinary incontinence, No penile discharge, No lesions, No impotence, No problem reported Neurologic: No memory loss, No paralysis, No weakness, No numbness/tingling, No vertigo, No balance problems, No problem reported Psychiatric: No depression symptoms, No anhedonism, No anxiety, No insomnia, No substance abuse, No problem reported Endocrine: No fatigue, No excessive thirst, No excessive urination, No problem reported Hematologic / Lymphatic: No abnormal bleeding/bruising, No clotting problems, No swollen lymph nodes, No night sweats, No problem reported Physical Exam Date Time Temp Pulse Resp B/P (MAP) Pulse Ox O2 Delivery O2 Flow Rate FiO2 09/12/17 06:52 86 18 103/67 97 Room Air 09/12/17 05:42 89 18 113/79 96 Room Air 09/12/17 04:41 36.7 99 16 122/83 96 Room Air General Appearance: WD/WN, + mild distress Head: normocephalic Eyes: normal inspection ENT: normal ENT inspection Neck: supple, no JVD Respiratory/Chest: chest non-tender, lungs clear, normal breath sounds Cardiovascular: regular rate, rhythm, no edema, no gallop, no JVD, no murmur, normal peripheral pulses Abdomen/GI: normal bowel sounds, soft, no organomegaly, no pulsatile mass, + tenderness (at RLQ with rebound pain) Extremities/Musculoskelatal: normal inspection, no calf tenderness, normal capillary refill Neurologic/Psych: no motor/sensory deficits, alert, normal mood/affect Skin: normal color, warm/dry, no rash Laboratory Results Last 24 Hours Test 09/12/17 05:11 White Blood Count 15.77 K/uL Red Blood Count 4.42 M/uL Hemoglobin 14.9 g/dL Hematocrit 42.6 % Mean Corpuscular Volume 96.4 fL Mean Corpuscular Hemoglobin 33.7 pg Mean Corpuscular Hemoglobin Concent 35.0 g/dl Platelet Count 164 K/uL Neutrophils (%) (Auto) 79.6 % Lymphocytes (%) (Auto) 10.4 % Monocytes (%) (Auto) 8.1 % Eosinophils (%) (Auto) 1.3 % Basophils (%) (Auto) 0.3 % Neutrophils # (Auto) 12.57 K/uL Lymphocytes # (Auto) 1.64 K/uL Monocytes # (Auto) 1.27 K/uL Eosinophils # (Auto) 0.20 K/uL Basophils # (Auto) 0.05 K/uL Immature Granulocyte % (Auto) 0.3 % Immature Granulocyte # (Auto) 0.04 K/uL Urine Color YELLOW Urine Appearance CLEAR Urine pH 5.5 Urine Specific [place] 1.015 Urine Protein NEG Urine Glucose (UA) NEG Urine Ketones NEG Urine Occult Blood NEG Urine Nitrite NEG Urine Bilirubin NEG Urine Urobilinogen NEG Urine Leukocyte Esterase NEG Sodium Level 134 mmol/L Potassium Level 4.1 mmol/L Chloride Level 102 mmol/L Carbon Dioxide Level 27 mmol/L Anion Gap 5.0 mmol/L Blood Urea Nitrogen 10 mg/dl Creatinine 0.90 mg/dl Est Creatinine Clear Calc Drug Dose 91.5 ml/min Estimated GFR () 117.5 Estimated GFR (Non- 101.4 BUN/Creatinine Ratio 11.3 Random Glucose 113 mg/dl Calcium Level 8.9 mg/dl Total Bilirubin 0.8 mg/dl Aspartate Amino Transf (AST/SGOT) 16 U/L Alanine Aminotransferase (ALT/SGPT) 22 U/L Alkaline Phosphatase 75 U/L Total Protein 7.5 gm/dl Albumin 3.8 gm/dl Globulin 3.7 gm/dl Albumin/Globulin Ratio 1.0 Lipase 108 U/L Assessment & Plan CT Scan- acute appendicitis Assessment: pt is 47 yo male who presents to ER for one day history RLQ pain, CT scan- acute appendicitis Plan, I recommend to do laparoscopic appendectomy possible open, D/W benefits, risks and alternatives of the procedure, the risks -infection, abscess, bleeding , injury bowel, pt understood, he agrees with the surgery and admission, I answered all questions,
--- NOTE | 2017-09-12 09:01 | EMERGENCY ROOM VISIT NOTE ---
History First contact with patient: 05:15 Chief Complaint: ABDOMINAL PAIN Stated Complaint: SHARP PAIN RLQ RADIATING TO NAVEL,PAIN W URINATION Nursing Triage Summary: pt c/o right lower abd pain that began yesterday while he was sleeping. states pain has been continuous. denies n/v/d/urinary symptoms/abdominal trauma. reports hx of acid refulx and hernia with repair. pt alert and oriented x4, breathing WNL, ambulatory independently. History of Present Illness The patient is a 47 year old male who presents to the Emergency Room with complaints of right lower quadrant abdominal pain. The patient states that the pain began yesterday while he was sleeping. The pain woke him up from sleep. The pain has been constant. He states it is located around the belly button into the right lower side and the groin. He states that the pain worsens with urination. He rates the discomfort a 10/10. He denies any other aggravating factors. He has not taken medication for the pain. He denies any other urinary symptoms, nausea, vomiting or fevers. He denies changes in bowel movements. No history of abdominal surgeries. Review of Systems A complete 10 point review of systems was reviewed with the patient with pertinent positives and negatives as per history of present illness. All else were negative. Past Medical/Surgical History Medical Problems: (1) Anemia (2) Bipolar disorder (3) Cannabis abuse (4) Chronic hip pain (5) Chronic pain (6) Depression (7) Heart attack (8) Thrush (9) Tobacco abuse Surgical Problems: (1) H/O hernia repair (2) S/P shoulder surgery Family History Patient reports no known family medical history. Social History Smoking Status: Current Every Day Smoker Smokeless Tobacco Use: No Alcohol Use: heavy Drug Use: none, marijuana Marital Status: single Occupation Status: disabled Current/Historical Medications Scheduled B-Complex Vitamins (Vitamin B Complex), 1 TAB PO DAILY Cholecalciferol (Vitamin D3), 3,000 MG PO DAILY Diphenhydramine Hcl (Allergy Relief), 1 TAB PO DAILY Fish Oil ([place]-3), 1 CAP PO DAILY Sylbpxrcfmk-Ukresrlbbkl-Kgg C- (Glucosamine Chondroitin), 1 TAB PO DAILY Melatonin (Melatonin Maximum Strengt), 5 MG PO HS Pantoprazole (Protonix), 40 MG PO DAILY Vitamin E (Vitamin E), Unknown Dose PO DAILY Vitamins C & E (Vitamin C), 1 CAP PO DAILY [volarian root], 1 TAB PO DAILY Scheduled PRN Nitroglycerin (Nitrostat), 0.4 MG UT UD PRN for Chest Pain Physical Exam Vital Signs Date Time Temp Pulse Resp B/P (MAP) Pulse Ox O2 Delivery O2 Flow Rate FiO2 09/12/17 08:18 76 18 115/72 95 09/12/17 06:52 86 18 103/67 97 Room Air 09/12/17 05:42 89 18 113/79 96 Room Air 09/12/17 04:41 36.7 99 16 122/83 96 Room Air Physical Exam VITALS: Vitals are noted on the nurse's note and reviewed by myself. Vital signs stable. GENERAL: This is a 47-year-old male, in no acute distress, nondiaphoretic, well- developed well-nourished. NECK: Supple without nuchal rigidity. HEART: Regular rate and rhythm without murmurs gallops or rubs. LUNGS: Clear to auscultation bilaterally without wheezes, rales or rhonchi. ABDOMEN: Positive bowel sounds x 4. Soft, moderate tenderness over the right lower quadrant. No guarding or rebound tenderness. NEURO: Patient was alert and oriented to person place and time. Medical Decision & Procedures ER Provider Diagnostic Interpretation: CT OF THE ABDOMEN AND PELVIS WITHOUT CONTRAST CLINICAL HISTORY: Right lower quadrant pain. COMPARISON STUDY: No previous studies for comparison. TECHNIQUE: Axial images of the abdomen and pelvis were obtained without IV contrast due to iodinated contrast dye allergy. Images were reviewed in the axial, sagittal, and coronal planes. A dose lowering technique was utilized adhering to the principles of ALARA. FINDINGS: Mild emphysema is noted within visualized portions of the lungs. Groundglass opacities reflect atelectasis. No pneumatosis, free air or portal venous gas is present. Evaluation of the abdomen and pelvis is suboptimal on this unenhanced exam. The liver, spleen, adrenal glands, kidneys and pancreas are within normal limits. There is no hydronephrosis. The appendix is markedly dilated, measuring 1.6 cm in caliber. An appendicolith within the appendiceal base is noted. There is moderate periappendiceal infiltration. There is no free air or abscess. There is no evidence for a bowel obstruction. Postsurgical findings within the lower anterior abdomen are noted. Trace fluid within the pelvis. No suspicious osseous lesion is present. IMPRESSION: Findings consistent with acute appendicitis. Dilated appendix which contains an appendicolith. Moderate periappendiceal infiltration with no free air or abscess. Laboratory Results 09/12/17 05:11 Red Blood Count 4.42, Mean Corpuscular Volume 96.4, Mean Corpuscular Hemoglobin 33.7, Mean Corpuscular Hemoglobin Concent 35.0, Neutrophils (%) (Auto) 79.6, Lymphocytes (%) (Auto) 10.4, Monocytes (%) (Auto) 8.1, Eosinophils (%) (Auto) 1.3, Basophils (%) (Auto) 0.3, Neutrophils # (Auto) 12.57, Lymphocytes # (Auto) 1.64, Monocytes # (Auto) 1.27, Eosinophils # (Auto) 0.20, Basophils # (Auto) 0.05 09/12/17 05:11 Test 09/12/17 05:11 White Blood Count 15.77 K/uL (4.8-10.8) Red Blood Count 4.42 M/uL (4.7-6.1) Hemoglobin 14.9 g/dL (14.0-18.0) Hematocrit 42.6 % (42-52) Mean Corpuscular Volume 96.4 fL (80-100) Mean Corpuscular Hemoglobin 33.7 pg (25-34) Mean Corpuscular Hemoglobin Concent 35.0 g/dl (32-36) Platelet Count 164 K/uL (130-400) Neutrophils (%) (Auto) 79.6 % Lymphocytes (%) (Auto) 10.4 % Monocytes (%) (Auto) 8.1 % Eosinophils (%) (Auto) 1.3 % Basophils (%) (Auto) 0.3 % Neutrophils # (Auto) 12.57 K/uL (1.4-6.5) Lymphocytes # (Auto) 1.64 K/uL (1.2-3.4) Monocytes # (Auto) 1.27 K/uL (0.11-0.59) Eosinophils # (Auto) 0.20 K/uL (0-0.5) Basophils # (Auto) 0.05 K/uL (0-0.2) Immature Granulocyte % (Auto) 0.3 % Immature Granulocyte # (Auto) 0.04 K/uL (0.00-0.02) Urine Color YELLOW Urine Appearance CLEAR (CLEAR) Urine pH 5.5 (4.5-7.5) Urine Specific [place] 1.015 (1.000-1.030) Urine Protein NEG (NEG) Urine Glucose (UA) NEG (NEG) Urine Ketones NEG (NEG) Urine Occult Blood NEG (NEG) Urine Nitrite NEG (NEG) Urine Bilirubin NEG (NEG) Urine Urobilinogen NEG (NEG) Urine Leukocyte Esterase NEG (NEG) Anion Gap 5.0 mmol/L (3-11) Est Creatinine Clear Calc Drug Dose 91.5 ml/min Estimated GFR () 117.5 Estimated GFR (Non- 101.4 BUN/Creatinine Ratio 11.3 (10-20) Calcium Level 8.9 mg/dl (8.5-10.1) Total Bilirubin 0.8 mg/dl (0.2-1) Aspartate Amino Transf (AST/SGOT) 16 U/L (15-37) Alanine Aminotransferase (ALT/SGPT) 22 U/L (12-78) Alkaline Phosphatase 75 U/L (45-117) Total Protein 7.5 gm/dl (6.4-8.2) Albumin 3.8 gm/dl (3.4-5.0) Globulin 3.7 gm/dl (2.5-4.0) Albumin/Globulin Ratio 1.0 (0.9-2) Lipase 108 U/L (73-393) Medications Administered Medications (Trade) Dose Ordered Sig/Adry Route Start Time Stop Time Status Last Admin Dose Admin Morphine Sulfate (MoRPHine SULFATE INJ) 6 mg NOW STAT IV 09/12/17 05:29 09/12/17 05:31 DC 09/12/17 05:39 6 MG Ondansetron HCl (Zofran Inj) 4 mg NOW STAT IV 09/12/17 05:29 09/12/17 05:31 DC 09/12/17 05:37 4 MG ED Course The patient was evaluated as above. Labs were drawn and IV access was obtained. Patient was medicated with a dose of morphine and Zofran. CT of the abdomen and pelvis was performed and read by radiology as above. Dr. Pickett of general surgery was consulted. He will evaluate the patient for operative management. Medical Decision Differential diagnosis includes acute appendicitis, kidney stone, colitis, gastroenteritis, among others. The patient is a 47-year-old male who presents today complaining of right lower quadrant abdominal pain. Labs revealed leukocytosis of 15,000. Labs were otherwise unremarkable. Urinalysis was not suggestive of infection. CT was performed without contrast due to patient's contrast allergy dye. This showed findings consistent with acute appendicitis. Gen. surgery was consulted and will take the patient to the OR for management. See their notes for patient course and disposition. Medication Reconcilliation Current Medication List: was personally reviewed by me Blood Pressure Screening Patient's blood pressure: Normal blood pressure Impression Primary Impression: Appendicitis Departure Information Referrals Anna Salinas PA-C (PCP) Patient Instructions My [facility] Problem Qualifiers Primary Impression: Appendicitis Appendicitis type: acute appendicitis
[2017-09-12] MEDS ORDERED: GLYCOPYRROLATE INJ 0.2 MG/ML VIAL ONE (09:08)
[2017-09-12] MEDS ORDERED: PROPOFOL IV EMULSION 10 MG/ML 20 ML VIAL IV ONE (09:08)
[2017-09-12] MEDS ORDERED: NEOSTIGMINE METHYLSULFATE 5 MG/5 ML SYR ONE (09:08)
[2017-09-12] MEDS ORDERED: DEXAMETHASONE SOD INJ 4 MG/ML VIAL ONE (09:08)
[2017-09-12] MEDS ORDERED: LIDOCAINE HCL 2% 2 ML VIAL (20MG/ML) ONE (09:08)
[2017-09-12] MEDS ORDERED: ONDANSETRON INJ 2 MG/ML 2 ML VIAL ONE (09:08)
[2017-09-12] MEDS ORDERED: MIDAZOLAM HCL 1 MG/ML 2ML VIAL ONE (09:09)
[2017-09-12] MEDS ORDERED: FENTANYL CITRATE INJ 50 MCG/1 ML 2 ML VIAL ONE ×2 (09:09→10:05)
--- NOTE | 2017-09-12 09:36 | History & Physical Bridge Note ---
H&P Re-Evaluation Bridge Note: I have examined the patient, reviewed the History & Physical and in the interval since the performance of the History & Physical I have noted the following changes of clinical significance: No changes noted
[2017-09-12] MEDS ORDERED: LIDOCAINE HCL 1% 20 ML VIAL ONE (09:48)
[2017-09-12] MEDS ORDERED: BUPIVACAINE 0.5 % 5 MG/1 ML MPF 30ML VIAL ONE (09:48)
[2017-09-12] MEDS ORDERED: SUCCINYLCHOLINE 100MG/5ML SYR IV ONE (10:05)
[2017-09-12] MEDS ORDERED: BACITRACIN OINT 15 GM TUBE ONE (10:34)
[2017-09-12] MEDS ORDERED: KETOROLAC TROMETHAMINE 30 MG/ML VIAL ONE (10:39)
[2017-09-12] MEDS ORDERED: LARYING-O-JET KIT (LTA) ONE ×2 (10:43)
--- NOTE | 2017-09-12 10:47 | [facility] Post Operative Brief Note ---
Immediate Operative Summary Operative Date Sep 12, 2017. Pre-Operative Diagnosis Acute appendicitis Post-Operative Diagnosis Same as preop Procedure(s) Performed Laparoscopic appendectomy Surgeon Dr. Pickett Metal Grinder Surgeon(s) none Estimated Blood Loss 10 cc Findings acute appendicitis Fluids (cc crystalloids) 1000ml Specimens A: appendix Drains none Anesthesia general Complication(s) None Disposition Recovery Room / PACU
[2017-09-12] MEDS ORDERED: ONDANSETRON INJ 2 MG/ML 2 ML VIAL IV PRN ×2 (11:00)
[2017-09-12] MEDS ORDERED: PROMETHAZINE HCL INJ 12.5 MG in SODIUM CHLORIDE 0.9% 50ML 50 ML IV PRN (11:00)
[2017-09-12] MEDS ORDERED: HYDROmorphone INJ 1 MG/ML SYR IV PRN ×2 (11:00)
[2017-09-12] MEDS ORDERED: ACETAMINOPHEN 325 MG TAB PO PRN (11:00)
[2017-09-12] MEDS ORDERED: LABETALOL HCL IV 5 MG/ML 20ML IV PRN (11:00)
[2017-09-12] MEDS ORDERED: NALOXONE HCL 0.4 MG/1 ML VIAL/CARP IV PRN (11:00)
[2017-09-12] MEDS ORDERED: IV FLUIDS COMPLETED PRN (11:00)
[2017-09-12] MEDS ORDERED: OXYCODONE/ACETAMINOPHEN 5-325 TAB PO PRN (11:00)
[2017-09-12] MEDS ORDERED: ATROPINE SULFATE 0.1 MG/ML 5ML SYR IV PRN (11:00)
[2017-09-12] MEDS ORDERED: EpHEDrine SULFATE INJ 50 MG/ML AMP IV PRN (11:00)
[2017-09-12] MEDS ORDERED: FLUMAZENIL 0.1 MG/1 ML 10 ML VIAL IV PRN (11:00)
--- NOTE | 2017-09-12 11:14 | OPERATIVE REPORT ---
DATE OF OPERATION: 09/12/2017 PREOPERATIVE DIAGNOSIS: Acute appendicitis. POSTOPERATIVE DIAGNOSIS: Same. PROCEDURE: Laparoscopic appendectomy. SURGEON: Dr. William Pickett. ANESTHESIA: General. ESTIMATED BLOOD LOSS: About 10 mL. IV FLUIDS: 1000 mL. FINDINGS: Acute appendicitis, significant inflammation on the appendix. COMPLICATIONS: None. INDICATIONS FOR THE PROCEDURE: This is a 47-year-old gentleman who presented to the ED with 1 day history of right lower quadrant pain. The patient had a CT scan diagnosis of acute appendicitis. I recommended to do laparoscopic appendectomy, possible open. I did talk to the patient about the benefit and risk, alternate procedure. I indicated the risks may include but not limited such as bleeding, infection, abscess, injury to bowel, fistula from bowel and leak from bowel. The patient understands. He signed informed consent and I answered all questions. DETAILS OF PROCEDURE: We brought the patient to the OR, put the patient in the supine position. The patient received SCD on bilateral legs to prevent DVT and also the patient received Cipro 400 mg and Flagyl 500 mg IV for prophylactic antibiotic. The patient received general anesthesia without difficulty. After anesthesiology the patient received Ferro catheter insertion. The abdomen was prepped and draped in routine sterile fashion. After a timeout, I injected local anesthesia by using 1% lidocaine mixed with 0.5% Marcaine just below the umbilical. Then I made a small incision just below the umbilical, opened fascia, opened the posterior sheath and peritoneum under direct vision. I put a Nicanor trocar in, connected to CO2 to create pneumoperitoneum. Flow rate is 6 liter per minute, pressure not more than 14 mmHg. Once we got a nice pneumoperitoneum, we put another two 5 mm trocar on the left lower quadrant and then we mobilized cecum area, found the patient had significant inflammation appendix, acute appendicitis diagnosis was confirmed. Then I used harmonic take down the appendiceal and rechecked no active bleeding. Then I used a 45 mm Endo-LEONARD staple transection on the base of the appendix, rechecked no active bleeding, no leak. Then we removed the appendix through the catch bag. Then we reinserted Nicanor trocar in, connected to CO2 to create pneumoperitoneum. Again I looked around the abdomen showing normal finding, no active bleeding from base of the appendix, no leak, and also we looked around the liver and small bowel, large bowel showing normal finding. Then we removed all trocars under direct vision. No active bleeding. Pneumoperitoneum was released, then I closed the umbilical incision fascial layer by using 0 Vicryl [id number] x2, closed subcutaneous layer by using 2-0 Vicryl interrupted and closed skin by using 4-0 Vicryl continuous running, closed another two 5 mm trocar site skin only by using 4-0 Vicryl. Then we put the dressing on. I removed the Ferro catheter and the patient tolerated the procedure well. All instrument, needle and sponge counts were correct x2 at the end of case. After the procedure, the patient transferred to recovery room in stable condition. The specimen sent to pathology. After the procedure, I did talk to the patient's family member about OR finding and procedure we did. She understands. I attest to the content of the Intraoperative Record and any orders documented therein. Any exceptions are noted below. BART
--- NOTE | 2017-09-12 11:37 | Anesthesiology Progress Note ---
Anesthesia Post Op Note Date & Time Sep 12, 2017 at 11:37 Vital Signs Pain Intensity: 0 Vital Signs Past 12 Hours Date Time Temp Pulse Resp B/P (MAP) Pulse Ox O2 Delivery O2 Flow Rate FiO2 09/12/17 11:30 37.5 76 15 122/76 100 Nasal Cannula 2 09/12/17 11:20 82 12 129/75 98 Nasal Cannula 2 09/12/17 11:10 37.1 86 14 122/80 100 Oxymask 10 09/12/17 11:00 78 12 138/92 100 Oxymask 10 09/12/17 10:54 37.1 92 14 131/87 100 Oxymask 10 09/12/17 08:18 76 18 115/72 95 09/12/17 06:52 86 18 103/67 97 Room Air 09/12/17 05:42 89 18 113/79 96 Room Air 09/12/17 04:41 36.7 99 16 122/83 96 Room Air Notes Mental Status: alert / awake / arousable, participated in evaluation Pt Amnestic to Procedure: Yes Nausea / Vomiting: adequately controlled Pain: adequately controlled Airway Patency, RR, SpO2: stable & adequate BP & HR: stable & adequate Hydration State: stable & adequate Anesthetic Complications: no major complications apparent
[2017-09-12 12:05] VITALS: O2SAT 94
[2017-09-12 12:35] VITALS: BP 120/72; PULSE 97; O2SAT 97
[2017-09-12] MEDS ORDERED: D5W AND 1/2NSS + 20MEQ KCL 1,000 ML IV SCH (13:00)
[2017-09-12 13:23] VITALS: BP 116/79; PULSE 71; O2SAT 94
[2017-09-12] MEDS ORDERED: NURSING VERBAL MED ORDER ONE (13:45)
[2017-09-12 14:05] VITALS: BP 116/81; PULSE 97; O2SAT 96
[2017-09-12] MEDS ORDERED: NICOTINE 21 MG/24 HR TDSY TD SCH (14:30)
[2017-09-12 15:09] VITALS: BP 110/74; PULSE 98; TEMP 37; O2SAT 94
[2017-09-12] MEDS ORDERED: METRONIDAZOLE / NSS 500 MG in PREMIXED NSS 0 ML IV SCH (17:00)
[2017-09-12] MEDS ORDERED: CIPROFLOXACIN / D5W 400 MG in PREMIXED IN D5W 200 ML IV SCH (21:00)
--- NOTE | 2017-09-15 07:14 | DISCHARGE SUMMARY ---
ADMITTING DIAGNOSIS: Acute appendicitis. POSTOPERATIVE DIAGNOSIS: Same. OPERATION: Laparoscopic appendectomy. SURGEON: William Pickett MD DETAILS OF DISCHARGE SUMMARY: The patient signed the AMA. The patient was admitted to the hospital on 09/12/2017 with abdominal pain. The patient had CT scan diagnosis of acute appendicitis, and we took the patient to the OR and did laparoscopic appendectomy. OR finding was significant inflammation on the appendix. The procedure went well and after the procedure I did talk to the patient and family member about the OR finding and procedure and I recommended the patient stay in the hospital overnight and the next day we woould repeat all the labs, overnight comfort for pain and patient's family agreed to stay overnight; however, 6 hour after the procedure, the patient and the patient's family wanted to go home and I still recommended to stay in the hospital based on patient's significant inflammation of the appendix and if they stay in the hospital overnight we can give good comfort for pain and IV antibiotic. However, the patient and patient's family members still wanted to sign AMA to go home against doctor's advice. I also instructed the patient on the consequences such as wound infection, bowel perforation, abscess if againstmedical advice. They still signed the AMA and went home on 09/12/2017.
== END 2017-09-12 17:16 | disposition left against medical advice (07) ==
LOC: C.EDB 04:41 → C.MSW 10:50 → ENRESERV 11:22
PROVIDERS: ADMIT Surgery; ATTEND Surgery
DX: K35.80 Unspecified acute appendicitis (principal); F31.9 Bipolar disorder, unspecified; J44.9 Chronic obstructive pulmonary disease, unspecified; M19.90 Unspecified osteoarthritis, unspecified site; F17.200 Nicotine dependence, unspecified, uncomplicated; F12.10 Cannabis abuse, uncomplicated; Z98.890 Other specified postprocedural states; Z79.899 Other long term (current) drug therapy

== ENCOUNTER 2017-09-14 08:10 | Inpatient (IN) | payer OTHER ==
[~2017-09-14] VITALS: Ht 167.6 cm; Wt 66.0 kg
[~2017-09-14 08:10] MED LIST changes: -ACYC-57 PO; +B-COTAB18 PO; +CHOL1000 PO; -CLR10 PO; +DIPH25TA2 PO; -DPKEC500 PO; -GABA-113 PO; +GLUCTAB7 PO; -HYDR25CA PO; -LISI-789 PO; +MELATAB2 PO; -NICO14DI5 TD; +OMEG10007 PO; +VITA1TAB12 PO; +VITACAP26 PO; -ZYP10 PO; -[UNRECOGNIZED DRUG - CODE] PO; +[UNRECOGNIZED DRUG - OTHER] PO
[2017-09-14] MEDS ORDERED: ONDANSETRON INJ 2 MG/ML 2 ML VIAL IV STA (08:32)
[2017-09-14] MEDS ORDERED: SODIUM CHLORIDE 0.9% 1000ML 1,000 ML IV STA (08:32)
[2017-09-14 09:01] LABS: BASO % 0.2 %; BASO ABS # 0.02 K/uL (0-0.2); EOS % 1.4 %; EOS ABS # 0.19 K/uL (0-0.5); HEMATOCRIT 40.6 % (42-52); HEMOGLOBIN 13.9 g/dL (14.0-18.0); IG# 0.04 K/uL (0.00-0.02); LYMPH % 5.8 %; LYMPH ABS # 0.76 K/uL (1.2-3.4); MEAN CELL VOLUME 96.2 fL (80-100); MEAN CORPUSCULAR HEMOGLOBIN 32.9 pg (25-34); MEAN CORPUSCULAR HGB CONC 34.2 g/dl (32-36); MEAN PLATELET VOLUME 10.6 fL (7.4-10.4); MONO % 4.7 %; MONO ABS # 0.62 K/uL (0.11-0.59); NEUT % 87.6 %; PLATELET COUNT 165 K/uL (130-400); RED CELL DISTRIBUTION WIDTH CV 12.2 % (11.5-14.5); RED CELL DISTRIBUTION WIDTH SD 42.8 fL (36.4-46.3); WHITE BLOOD COUNT 13.13 K/uL (4.8-10.8)
[2017-09-14] MEDS ORDERED: CLR10 PO (09:17)
--- NOTE | 2017-09-14 09:22 | DIAGNOSTIC IMAGING REPORT ---
ABD/PELVIS NO IV OR ORAL CONT CT DOSE: 293.58 mGy.cm HISTORY: Pain Recent appy; diffuse abd pain TECHNIQUE: Multiaxial CT images of the abdomen and pelvis were performed without contrast. A dose lowering technique was utilized adhering to the principles of ALARA. COMPARISON STUDY: 09/12/2017 FINDINGS: Interval development of mild bibasilar parenchymal infiltrative change. Gallbladder is moderately distended. Liver spleen and pancreas are uniform. Kidneys negative for calcification or hydronephrosis. There is been interval appendectomy. There are infiltrative changes in the right lower quadrant and right central pelvic region the bulk of which are most likely pre-existing and/or related to postoperative soft tissue change. Moderate free fluid within the pelvic cul-de-sac measuring 4 x 7 cm. Several small scattered air bubbles are present particularly a postoperative basis. IMPRESSION: 1. Interval appendectomy. 2. Mild bibasilar parenchymal infiltrative change. 3. Persistent infiltrative change of the right lower quadrant tissue most likely on a pre-existing and a postoperative basis. 4. Interval moderate fluid within the low pelvic cul-de-sac measuring 4 x 7 cm. This potentially relates to post procedural hemorrhage versus an early developing collection. Close CT monitoring is suggested. The above report was generated using voice recognition software. It may contain grammatical, syntax or spelling errors. Electronically signed by: Zoltan Hoyt M.D. 09/14/2017 9:20 AM Dictated Date/Time: 09/14/2017 9:12 AM
[2017-09-14 09:24] LABS: ALBUMIN 3.1 gm/dl (3.4-5.0); CREATININE 0.84 mg/dl (0.60-1.40); POTASSIUM 3.6 mmol/L (3.5-5.1)
[2017-09-14 09:27] LABS: TOTAL PROTEIN 7.2 gm/dl (6.4-8.2)
[2017-09-14] MEDS ORDERED: ACETAMINOPHEN 325 MG TAB PO PRN (10:15)
[2017-09-14] MEDS ORDERED: ONDANSETRON INJ 2 MG/ML 2 ML VIAL IV PRN (10:15)
--- NOTE | 2017-09-14 10:17 | Surgery Consultation ---
Consultation Date of Consultation: Sep 14, 2017. Attending Physician: History of Present Illness pt is a 47 year old who is post-op laparoscopic appendectomy 2 days ago, pt signed AMA left hospital 2 days ago, now pt comes back to ER with increase abdominal pain, pt denies nausea, no vomiting, passed some gas , no BM yet, pt denies fever, no diarrhea, pt said "he should not sign AMA left hospital, I should follow Doctor order". Past Medical/Surgical History Medical Problems: (1) Acute psychosis Status: Acute (2) Alcoholism Status: Acute (3) Aphthous ulcer of mouth Status: Acute (4) Appendicitis Status: Acute (5) Dermatitis Status: Acute (6) GERD with esophagitis Status: Acute (7) Noncompliance Status: Acute (8) Pharyngitis Status: Acute Family History Patient reports no known family medical history. Social History Smoking Status: Current Every Day Smoker Smokeless Tobacco Use: No Alcohol Use: heavy Drug Use: marijuana Marital Status: single Occupation Status: disabled Allergies Coded Allergies: Iodinated Diagnostic Agents (Verified Allergy, Severe, ANAPHYLAXIS, ) Cephalexin (Verified Allergy, Intermediate, Rash and hives, 09/14/17) Uncoded Allergies: SEASONAL (Allergy, Intermediate, ., 09/14/17) Home Medications Scheduled Loratadine (Claritin), 10 MG PO BID Pantoprazole (Protonix), 40 MG PO DAILY Current Inpatient Medications Current Inpatient Medications Medications (Trade) Dose Ordered Sig/Adry Route Start Time Stop Time Status Last Admin Dose Admin Sodium Chloride 1,000 ml @ 15 mls/hr Q24H STAT IV 09/14/17 08:32 09/15/17 08:31 09/14/17 08:49 15 MLS/HR Review of Systems Constitutional: No fever, No chills, No sweats, No weight loss, No weakness, No fatigue, No problem reported Eyes: No worsening of vision, No eye pain, No redness, No discharge, No diplopia, No problem reported ENT: No hearing loss, No unusual epistaxis, No nasal symptoms, No sore throat, No tinnitus, No dental problems, No trouble swallowing, No problem reported Respiratory: No cough, No sputum, No wheezing, No shortness of breath, No dyspnea on exertion, No dyspnea at rest, No hemoptysis, No problem reported Cardiovascular: No chest pain, No orthopnea, No PND, No edema, No claudication , No palpitations, No problem reported Abdomen: + pain Musculoskeletal: No joint pain, No muscle pain, No swelling, No calf pain, No problem reported Genitourinary - Male: No hematuria, No dysuria, No urinary frequency, No urinary urgency, No urinary hesitancy, No urinary retention, No urinary incontinence, No penile discharge, No lesions, No impotence, No problem reported Neurologic: No memory loss, No paralysis, No weakness, No numbness/tingling, No vertigo, No balance problems, No problem reported Psychiatric: No depression symptoms, No anhedonism, No anxiety, No insomnia, No substance abuse, No problem reported Endocrine: No fatigue, No excessive thirst, No excessive urination, No problem reported Hematologic / Lymphatic: No abnormal bleeding/bruising, No clotting problems, No swollen lymph nodes, No night sweats, No problem reported Physical Exam Date Time Temp Pulse Resp B/P (MAP) Pulse Ox O2 Delivery O2 Flow Rate FiO2 09/14/17 09:36 89 09/14/17 09:24 89 18 108/65 96 Room Air 09/14/17 08:18 36.7 120 18 124/82 97 Room Air General Appearance: WD/WN, no apparent distress Head: normocephalic Eyes: normal inspection ENT: normal ENT inspection Neck: supple, no JVD Respiratory/Chest: chest non-tender, lungs clear, normal breath sounds, no respiratory distress Cardiovascular: regular rate, rhythm, no edema, no gallop, no JVD, no murmur Abdomen/GI: normal bowel sounds, soft, no organomegaly, no pulsatile mass, + tenderness (at RLQ) Extremities/Musculoskelatal: normal inspection, no calf tenderness, normal capillary refill Neurologic/Psych: no motor/sensory deficits, alert, normal mood/affect Skin: normal color, warm/dry, no rash Laboratory Results Last 24 Hours Test 09/14/17 08:45 09/14/17 09:44 White Blood Count 13.13 K/uL Red Blood Count 4.22 M/uL Hemoglobin 13.9 g/dL Hematocrit 40.6 % Mean Corpuscular Volume 96.2 fL Mean Corpuscular Hemoglobin 32.9 pg Mean Corpuscular Hemoglobin Concent 34.2 g/dl Platelet Count 165 K/uL Mean Platelet Volume 10.6 fL Neutrophils (%) (Auto) 87.6 % Lymphocytes (%) (Auto) 5.8 % Monocytes (%) (Auto) 4.7 % Eosinophils (%) (Auto) 1.4 % Basophils (%) (Auto) 0.2 % Neutrophils # (Auto) 11.50 K/uL Lymphocytes # (Auto) 0.76 K/uL Monocytes # (Auto) 0.62 K/uL Eosinophils # (Auto) 0.19 K/uL Basophils # (Auto) 0.02 K/uL RDW Standard Deviation 42.8 fL RDW Coefficient of Variation 12.2 % Immature Granulocyte % (Auto) 0.3 % Immature Granulocyte # (Auto) 0.04 K/uL Sodium Level 137 mmol/L Potassium Level 3.6 mmol/L Chloride Level 104 mmol/L Carbon Dioxide Level 25 mmol/L Anion Gap 8.0 mmol/L Blood Urea Nitrogen 18 mg/dl Creatinine 0.84 mg/dl Est Creatinine Clear Calc Drug Dose 98.0 ml/min Estimated GFR () 120.8 Estimated GFR (Non- 104.3 BUN/Creatinine Ratio 20.9 Random Glucose 86 mg/dl Calcium Level 9.0 mg/dl Total Bilirubin 0.8 mg/dl Direct Bilirubin 0.3 mg/dl Aspartate Amino Transf (AST/SGOT) 34 U/L Alanine Aminotransferase (ALT/SGPT) 44 U/L Alkaline Phosphatase 95 U/L Total Protein 7.2 gm/dl Albumin 3.1 gm/dl Lipase 53 U/L Urine Color DK YELLOW Urine Appearance CLEAR Urine pH 7.5 Urine Specific [place] 1.030 Urine Protein NEG Urine Glucose (UA) NEG Urine Ketones 1+ Urine Occult Blood NEG Urine Nitrite NEG Urine Bilirubin NEG Urine Urobilinogen NEG Urine Leukocyte Esterase TRACE Urine WBC (Auto) 1-5 /hpf Urine RBC (Auto) 0-4 /hpf Urine Hyaline Casts (Auto) 1-5 /lpf Urine Epithelial Cells (Auto) 10-20 /lpf Urine Bacteria (Auto) NEG Assessment & Plan IMPRESSION: 1. Interval appendectomy. 2. Mild bibasilar parenchymal infiltrative change. 3. Persistent infiltrative change of the right lower quadrant tissue most likely on a pre-existing and a postoperative basis. 4. Interval moderate fluid within the low pelvic cul-de-sac measuring 4 x 7 cm. This potentially relates to post procedural hemorrhage versus an early developing collection. Close CT monitoring is suggested. Assessment: pt sis S/P lap appy with increase abdominal pain after pt signed AMA. IMP; post-op pain, abscess, leakage from bowel? Plan, admit to hospital, IV fluid, control pain iv antibiotic, repeat labs in am, pt agrees with the plan,
[2017-09-14 10:20] VITALS: O2SAT 96; Ht 167.6 cm; Wt 66.0 kg
[2017-09-14] MEDS: HYDROmorphone INJ 1 MG/ML SYR IV PRN ×3 (11:04→19:16)
[2017-09-14] MEDS ORDERED: AMPICILLIN/SULBACTAM SOD INJ 1,500 MG in SODIUM CHLORIDE 0.9% 100ML 100 ML IV SCH (12:00)
[2017-09-14] MEDS: D5W AND 1/2NSS + 20MEQ KCL 1,000 ML IV SCH ×2 (12:30→22:30)
[2017-09-14] MEDS: METRONIDAZOLE / NSS 500 MG in PREMIXED NSS 0 ML IV SCH ×2 (14:01→22:31)
[2017-09-14] MEDS: LORAZEPAM 0.5 MG TAB PO PRN (14:01)
[2017-09-14] MEDS ORDERED: NURSING VERBAL MED ORDER ONE (14:10)
[2017-09-14] MEDS ORDERED: NICOTINE 21 MG/24 HR TDSY TD ONE (14:30)
--- NOTE | 2017-09-14 14:31 | Surgery Progress Note ---
Surgery Progress Note Date of Service Sep 14, 2017. Subjective + feeling well pt feels better, pt denies nausea, no vomiting, pass gas, Objective Vital Signs: Date Time Temp Pulse Resp B/P (MAP) Pulse Ox O2 Delivery O2 Flow Rate FiO2 09/14/17 10:36 88 16 101/70 98 Room Air 09/14/17 10:20 96 Room Air 09/14/17 09:36 89 09/14/17 09:24 89 18 108/65 96 Room Air 09/14/17 08:18 36.7 120 18 124/82 97 Room Air General Appearance: WD/WN, no apparent distress Head: normocephalic Neck: supple, no JVD Respiratory/Chest: chest non-tender, lungs clear Cardiovascular: regular rate, rhythm, no edema, no gallop, no JVD, no murmur Abdomen: normal bowel sounds, non distended, soft, + tenderness Incision(s): clean, dry, intact Extremities: normal range of motion, non-tender, normal inspection Laboratory Results: Results Past 24 Hours Test 09/14/17 08:45 09/14/17 09:44 Range/Units White Blood Count 13.13 4.8-10.8 K/uL Red Blood Count 4.22 4.7-6.1 M/uL Hemoglobin 13.9 14.0-18.0 g/dL Hematocrit 40.6 42-52 % Mean Corpuscular Volume 96.2 80-100 fL Mean Corpuscular Hemoglobin 32.9 25-34 pg Mean Corpuscular Hemoglobin Concent 34.2 32-36 g/dl Platelet Count 165 130-400 K/uL Mean Platelet Volume 10.6 7.4-10.4 fL Neutrophils (%) (Auto) 87.6 % Lymphocytes (%) (Auto) 5.8 % Monocytes (%) (Auto) 4.7 % Eosinophils (%) (Auto) 1.4 % Basophils (%) (Auto) 0.2 % Neutrophils # (Auto) 11.50 1.4-6.5 K/uL Lymphocytes # (Auto) 0.76 1.2-3.4 K/uL Monocytes # (Auto) 0.62 0.11-0.59 K/uL Eosinophils # (Auto) 0.19 0-0.5 K/uL Basophils # (Auto) 0.02 0-0.2 K/uL RDW Standard Deviation 42.8 36.4-46.3 fL RDW Coefficient of Variation 12.2 11.5-14.5 % Immature Granulocyte % (Auto) 0.3 % Immature Granulocyte # (Auto) 0.04 0.00-0.02 K/uL Sodium Level 137 136-145 mmol/L Potassium Level 3.6 3.5-5.1 mmol/L Chloride Level 104 98-107 mmol/L Carbon Dioxide Level 25 21-32 mmol/L Anion Gap 8.0 3-11 mmol/L Blood Urea Nitrogen 18 7-18 mg/dl Creatinine 0.84 0.60-1.40 mg/dl Est Creatinine Clear Calc Drug Dose 98.0 ml/min Estimated GFR () 120.8 Estimated GFR (Non- 104.3 BUN/Creatinine Ratio 20.9 10-20 Random Glucose 86 70-99 mg/dl Calcium Level 9.0 8.5-10.1 mg/dl Total Bilirubin 0.8 0.2-1 mg/dl Direct Bilirubin 0.3 0-0.2 mg/dl Aspartate Amino Transf (AST/SGOT) 34 15-37 U/L Alanine Aminotransferase (ALT/SGPT) 44 12-78 U/L Alkaline Phosphatase 95 45-117 U/L Total Protein 7.2 6.4-8.2 gm/dl Albumin 3.1 3.4-5.0 gm/dl Lipase 53 73-393 U/L Urine Color DK YELLOW Urine Appearance CLEAR CLEAR Urine pH 7.5 4.5-7.5 Urine Specific [place] 1.030 1.000-1.030 Urine Protein NEG NEG Urine Glucose (UA) NEG NEG Urine Ketones 1+ NEG Urine Occult Blood NEG NEG Urine Nitrite NEG NEG Urine Bilirubin NEG NEG Urine Urobilinogen NEG NEG Urine Leukocyte Esterase TRACE NEG Urine WBC (Auto) 1-5 0-5 /hpf Urine RBC (Auto) 0-4 0-4 /hpf Urine Hyaline Casts (Auto) 1-5 0-5 /lpf Urine Epithelial Cells (Auto) 10-20 0-5 /lpf Urine Bacteria (Auto) NEG NEG Urine Opiates Screen POS NEG Urine Methadone, Qualitative NEG NEG Urine Barbiturates NEG NEG Urine Phencyclidine (PCP) Level NEG NEG Ur Amphetamine/Methamphetamine NEG NEG MDMA (Ecstasy) Screen NEG NEG Urine Benzodiazepines Screen NEG NEG Urine Cocaine Metabolite NEG NEG Urine Marijuana (THC) POS NEG Assessment & Plan pt is S/P lap appy for acute appendicitis 2 days ago, pt signed AMA 2 days ago, pt was admitted to hospital for increase abdominal pain today, pt is doing better, less abdominal pain, the reason pt signed AMA in order to use marijuana at home, continue treatment, iv antibiotic, repeat labs in am, will F/U, update information to pt , pt understood,
[2017-09-14] MEDS ORDERED: BISACODYL 10 MG SUPP PR STA (14:33)
[2017-09-14 15:00] VITALS: BP 116/79; PULSE 109; TEMP 36.3; O2SAT 93
[2017-09-14] MEDS: OXYCODONE/ACETAMINOPHEN 5-325 TAB PO PRN ×2 (16:25→23:30)
--- NOTE | 2017-09-14 17:11 | EMERGENCY ROOM VISIT NOTE ---
ED Visit Note First contact with patient: 08:17 Chief Complaint: Abdominal pain. History of Present Illness: Mr. Greenfield is a 47 year-old white male ambulates into the ED complaining of diffuse abdominal pain. Historically patient reports he had an appendectomy 2 days ago; he reports the surgeon recommended that he come into the hospital for observation for 24 hours after his surgery and he refused and signed out AGAINST MEDICAL ADVICE. Patient reports since leaving the hospital he has been having severe abdominal pain. He reports his pain is throughout the abdomen. He describes it as a sharp discomfort. He rates his discomfort 10/10. The pain is nonradiating. Pain worsens with ambulation, palpitations and attempt at eating. He has not identified any alleviating factors related to the pain. He reports she has not taken a medication for pain prior to arrival at the hospital. Associated with his pain he reports he has been having chills and possibly fevers, decreased appetite, nausea without vomiting, no bowel movements. Patient denies skin eruptions, skin color changes, upper respiratory tract symptoms, shortness of breath, chest pain, diarrhea, rectal bleeding, black/ tarry stools, urinary symptoms, hematuria, back/flank pain. Review of Systems: As noted above in history of present illness. All body systems were reviewed and found to be negative as noted above. Past Medical History: (1) Acute appendicitis (2) Anemia (3) Bipolar disorder (4) Cannabis abuse (5) Chronic hip pain (6) Chronic pain (7) Depression (8) Heart attack (9) Post-op pain (10) Thrush (11) Tobacco abuse Surgical Problems: (1) H/O hernia repair (2) S/P shoulder surgery Current Medications: Claritin, Protonix. Allergies to Medications: Cephalexin, IV contrast. Social History: Patient is not employed, he is on disability, he admits to tobacco use and alcohol use. Physical Examination: Vital Signs: Date Time Temp Pulse Resp B/P (MAP) Pulse Ox O2 Delivery O2 Flow Rate FiO2 09/14/17 09:36 89 09/14/17 09:24 89 18 108/65 96 Room Air 09/14/17 08:18 36.7 120 18 124/82 97 Room Air GENERAL: 47-year-old male in mild to moderate distress due to pain, nontoxic- appearing, afebrile and hemodynamically stable. NEUROLOGICAL: Awake, alert and oriented to person, place and time. Answering questions appropriately and following commands. Normal gait. Good hand eye coordination. SKIN: Warm, dry and pink. No soft tissue eruptions or trauma noted. HEENT: Atraumatic and normocephalic. PERRLA. Sclera white and conjunctiva pink. Oral cavity moist and pink. Pharynx is nonerythematous or edematous. Speech normal. No lymphadenopathy. Trachea midline. No jugular venous distention. BACK: No tenderness over the bony spine. No CVA tenderness. THORAX: Lungs sounds are clear to auscultation and equal bilaterally with symmetrical chest wall. No wheezing, rales or rhonchi. No crepitus, tenderness , subcutaneous air or deformities noted. HEART: Regular rate and rhythm. No gallops, rubs or murmurs are appreciated. ABDOMEN: Abdominal surgical sites were evaluated and were clean dry and intact. Abdomen is flat, soft with moderate to severe tenderness. Decreased bowel sounds in all quadrants. No guarding, rigidity or organomegaly. EXTREMITIES: Moves all extremities well on command and with purpose. All distal neurovascular statuses are intact and equal bilaterally. ED Course: Patient is assessed as noted above. Laboratory Testing: Test 09/14/17 08:45 09/14/17 09:44 Range/Units White Blood Count 13.13 4.8-10.8 K/uL Red Blood Count 4.22 4.7-6.1 M/uL Hemoglobin 13.9 14.0-18.0 g/dL Hematocrit 40.6 42-52 % Mean Corpuscular Volume 96.2 80-100 fL Mean Corpuscular Hemoglobin 32.9 25-34 pg Mean Corpuscular Hemoglobin Concent 34.2 32-36 g/dl Platelet Count 165 130-400 K/uL Mean Platelet Volume 10.6 7.4-10.4 fL Neutrophils (%) (Auto) 87.6 % Lymphocytes (%) (Auto) 5.8 % Monocytes (%) (Auto) 4.7 % Eosinophils (%) (Auto) 1.4 % Basophils (%) (Auto) 0.2 % Neutrophils # (Auto) 11.50 1.4-6.5 K/uL Lymphocytes # (Auto) 0.76 1.2-3.4 K/uL Monocytes # (Auto) 0.62 0.11-0.59 K/uL Eosinophils # (Auto) 0.19 0-0.5 K/uL Basophils # (Auto) 0.02 0-0.2 K/uL RDW Standard Deviation 42.8 36.4-46.3 fL RDW Coefficient of Variation 12.2 11.5-14.5 % Immature Granulocyte % (Auto) 0.3 % Immature Granulocyte # (Auto) 0.04 0.00-0.02 K/uL Sodium Level 137 136-145 mmol/L Potassium Level 3.6 3.5-5.1 mmol/L Chloride Level 104 98-107 mmol/L Carbon Dioxide Level 25 21-32 mmol/L Anion Gap 8.0 3-11 mmol/L Blood Urea Nitrogen 18 7-18 mg/dl Creatinine 0.84 0.60-1.40 mg/dl Est Creatinine Clear Calc Drug Dose 98.0 ml/min Estimated GFR () 120.8 Estimated GFR (Non- 104.3 BUN/Creatinine Ratio 20.9 10-20 Random Glucose 86 70-99 mg/dl Calcium Level 9.0 8.5-10.1 mg/dl Total Bilirubin 0.8 0.2-1 mg/dl Direct Bilirubin 0.3 0-0.2 mg/dl Aspartate Amino Transf (AST/SGOT) 34 15-37 U/L Alanine Aminotransferase (ALT/SGPT) 44 12-78 U/L Alkaline Phosphatase 95 45-117 U/L Total Protein 7.2 6.4-8.2 gm/dl Albumin 3.1 3.4-5.0 gm/dl Lipase 53 73-393 U/L Urine Color DK YELLOW Urine Appearance CLEAR CLEAR Urine pH 7.5 4.5-7.5 Urine Specific [place] 1.030 1.000-1.030 Urine Protein NEG NEG Urine Glucose (UA) NEG NEG Urine Ketones 1+ NEG Urine Occult Blood NEG NEG Urine Nitrite NEG NEG Urine Bilirubin NEG NEG Urine Urobilinogen NEG NEG Urine Leukocyte Esterase TRACE NEG Urine WBC (Auto) 1-5 0-5 /hpf Urine RBC (Auto) 0-4 0-4 /hpf Urine Hyaline Casts (Auto) 1-5 0-5 /lpf Urine Epithelial Cells (Auto) 10-20 0-5 /lpf Urine Bacteria (Auto) NEG NEG Urine Opiates Screen POS NEG Urine Methadone, Qualitative NEG NEG Urine Barbiturates NEG NEG Urine Phencyclidine (PCP) Level NEG NEG Ur Amphetamine/Methamphetamine NEG NEG MDMA (Ecstasy) Screen NEG NEG Urine Benzodiazepines Screen NEG NEG Urine Cocaine Metabolite NEG NEG Urine Marijuana (THC) POS NEG Noncontrast Abdominal/Pelvic CT: Was reviewed by myself and read by the radiologist showing interval appendectomy, mild bibasilar parenchymal infiltrate changes, persistent infiltrate change of the right lower quadrant tissue most likely on pre-existing and apparently operative basis and interval moderate fluid within the lower pelvic cul-de-sac measuring 4 x 7 cm consistent with a possible hemorrhage versus developing collection. Patient was hydrated with normal saline and he received 4 mg of Zofran IV for nausea. Patient's case was reviewed with Dr. Fleming; we agreed on diagnostic approach, treatment, disposition and plan. Patient's case was consulted with Dr. Pickett, general surgery for evaluation and care; Dr. Pickett reported was going admit the patient into the hospital Patient was educated about today's findings. Clinical Impression: Postoperative pain. Decision-Making: Initially my differential diagnosis I considered surgical abscess, postsurgical bleeding, stump appendicitis, perforated viscus, bowel obstruction and other causes. Disposition and Plan: Patient be brought in the hospital by Dr. shin; please see his notes and orders for final disposition and plan.
[2017-09-14] MEDS: CIPROFLOXACIN / D5W 400 MG in PREMIXED IN D5W 200 ML IV SCH (19:16)
[2017-09-14 22:48] VITALS: BP 93/61; PULSE 98; TEMP 37.2; O2SAT 90
[2017-09-15] MEDS: HYDROmorphone INJ 1 MG/ML SYR IV PRN ×5 (04:07→22:31)
[2017-09-15] MEDS: METRONIDAZOLE / NSS 500 MG in PREMIXED NSS 0 ML IV SCH (05:54)
[2017-09-15 06:11] LABS: BASO % 0.1 %; BASO ABS # 0.01 K/uL (0-0.2); EOS % 2.7 %; HEMATOCRIT 39.2 % (42-52); HEMOGLOBIN 13.3 g/dL (14.0-18.0); IG# 0.04 K/uL (0.00-0.02); LYMPH % 6.7 %; LYMPH ABS # 0.75 K/uL (1.2-3.4); MEAN CELL VOLUME 97.5 fL (80-100); MEAN CORPUSCULAR HEMOGLOBIN 33.1 pg (25-34); MEAN CORPUSCULAR HGB CONC 33.9 g/dl (32-36); MEAN PLATELET VOLUME 10.4 fL (7.4-10.4); MONO % 8.4 %; MONO ABS # 0.95 K/uL (0.11-0.59); NEUT % 81.7 %; NEUT ABS # 9.21 K/uL (1.4-6.5); PLATELET COUNT 177 K/uL (130-400); RED CELL DISTRIBUTION WIDTH CV 12.2 % (11.5-14.5); RED CELL DISTRIBUTION WIDTH SD 43.4 fL (36.4-46.3); WHITE BLOOD COUNT 11.26 K/uL (4.8-10.8)
[2017-09-15 06:41] VITALS: BP 106/71; PULSE 93; TEMP 36.7; O2SAT 95
[2017-09-15 06:53] LABS: ALBUMIN 2.7 gm/dl (3.4-5.0); CALCIUM 8.7 mg/dl (8.5-10.1); CREATININE 0.82 mg/dl (0.60-1.40); POTASSIUM 3.9 mmol/L (3.5-5.1); TOTAL PROTEIN 6.9 gm/dl (6.4-8.2)
[2017-09-15] MEDS: CIPROFLOXACIN / D5W 400 MG in PREMIXED IN D5W 200 ML IV SCH ×2 (07:25→20:19)
[2017-09-15] MEDS: D5W AND 1/2NSS + 20MEQ KCL 1,000 ML IV SCH ×2 (07:25→19:05)
[2017-09-15] MEDS: LORAZEPAM 0.5 MG TAB PO PRN ×2 (07:28→16:04)
[2017-09-15] MEDS: OXYCODONE/ACETAMINOPHEN 5-325 TAB PO PRN ×3 (07:33→23:36)
[2017-09-15] MEDS: NICOTINE 21 MG/24 HR TDSY TD SCH (08:30)
--- NOTE | 2017-09-15 14:06 | Surgery Progress Note ---
Surgery Progress Note Date of Service Sep 15, 2017. Subjective Post OP Day: HD # 1 , POD # 4 s/p laparoscopic appendectomy Feeling better still moderate abdominal pain Not much flatus today Liquid bowel movement after suppository yesterday No nausea or vomiting +hungry Objective Vital Signs: Date Time Temp Pulse Resp B/P (MAP) Pulse Ox O2 Delivery O2 Flow Rate FiO2 09/15/17 07:15 Room Air 09/15/17 06:41 36.7 93 17 106/71 (83) 95 Room Air 09/14/17 23:20 Room Air 09/14/17 22:48 37.2 98 16 93/61 (72) 90 Room Air 09/14/17 15:20 Room Air 09/14/17 15:00 36.3 109 17 116/79 (91) 93 Room Air General Appearance: WD/WN, no apparent distress Head: normocephalic, atraumatic Neck: trachea midline Respiratory/Chest: no respiratory distress, no accessory muscle use Abdomen: non distended, soft, + tenderness (generalized tenderness on palpation , no peritonitis or rigidity) Incision(s): clean, dry, intact, no erythema, no drainage, findings (steri strips present) Laboratory Results: Results Past 24 Hours Test 09/15/17 05:18 Range/Units White Blood Count 11.26 4.8-10.8 K/uL Red Blood Count 4.02 4.7-6.1 M/uL Hemoglobin 13.3 14.0-18.0 g/dL Hematocrit 39.2 42-52 % Mean Corpuscular Volume 97.5 80-100 fL Mean Corpuscular Hemoglobin 33.1 25-34 pg Mean Corpuscular Hemoglobin Concent 33.9 32-36 g/dl Platelet Count 177 130-400 K/uL Mean Platelet Volume 10.4 7.4-10.4 fL Neutrophils (%) (Auto) 81.7 % Lymphocytes (%) (Auto) 6.7 % Monocytes (%) (Auto) 8.4 % Eosinophils (%) (Auto) 2.7 % Basophils (%) (Auto) 0.1 % Neutrophils # (Auto) 9.21 1.4-6.5 K/uL Lymphocytes # (Auto) 0.75 1.2-3.4 K/uL Monocytes # (Auto) 0.95 0.11-0.59 K/uL Eosinophils # (Auto) 0.30 0-0.5 K/uL Basophils # (Auto) 0.01 0-0.2 K/uL RDW Standard Deviation 43.4 36.4-46.3 fL RDW Coefficient of Variation 12.2 11.5-14.5 % Immature Granulocyte % (Auto) 0.4 % Immature Granulocyte # (Auto) 0.04 0.00-0.02 K/uL Sodium Level 133 136-145 mmol/L Potassium Level 3.9 3.5-5.1 mmol/L Chloride Level 99 98-107 mmol/L Carbon Dioxide Level 28 21-32 mmol/L Anion Gap 6.0 3-11 mmol/L Blood Urea Nitrogen 11 7-18 mg/dl Creatinine 0.82 0.60-1.40 mg/dl Est Creatinine Clear Calc Drug Dose 100.4 ml/min Estimated GFR () 122.0 Estimated GFR (Non- 105.3 BUN/Creatinine Ratio 13.8 10-20 Random Glucose 99 70-99 mg/dl Calcium Level 8.7 8.5-10.1 mg/dl Total Bilirubin 0.6 0.2-1 mg/dl Aspartate Amino Transf (AST/SGOT) 13 15-37 U/L Alanine Aminotransferase (ALT/SGPT) 31 12-78 U/L Alkaline Phosphatase 102 45-117 U/L Total Protein 6.9 6.4-8.2 gm/dl Albumin 2.7 3.4-5.0 gm/dl Globulin 4.2 2.5-4.0 gm/dl Albumin/Globulin Ratio 0.6 0.9-2 Assessment & Plan POD # 4 s/p laparoscopic appendectomy, left hospital on Sat 09/12 AMA -vitals stable, afebrile - improvement of leukocytosis of 11.28K today - moderate pain, controlled - no nausea or vomiting Plan: Continue pain management with Percocet and IV Dilaudid prn Continue IV antibiotics Advance diet to clear liquids repeat am labs tomorrow encourage ambulation Dr. Pickett has seen and examined patient, agrees with above
[2017-09-15] MEDS: METRONIDAZOLE / NSS 500 MG in PREMIXED NSS 100 ML IV SCH ×2 (14:43→22:30)
[2017-09-15 14:51] VITALS: BP 114/72; PULSE 107; TEMP 36.9; O2SAT 92
[2017-09-15] MEDS ORDERED: NICOTINE 21 MG/24 HR TDSY TD SCH (16:00)
[2017-09-15 23:38] VITALS: BP 123/83; PULSE 106; TEMP 37; O2SAT 94
[2017-09-16] MEDS: D5W AND 1/2NSS + 20MEQ KCL 1,000 ML IV SCH ×2 (05:46→14:24)
[2017-09-16] MEDS: OXYCODONE/ACETAMINOPHEN 5-325 TAB PO PRN ×3 (05:49→14:33)
[2017-09-16] MEDS: METRONIDAZOLE / NSS 500 MG in PREMIXED NSS 100 ML IV SCH ×2 (06:23→14:24)
[2017-09-16] MEDS: CIPROFLOXACIN / D5W 400 MG in PREMIXED IN D5W 200 ML IV SCH (07:28)
[2017-09-16] MEDS: LORAZEPAM 0.5 MG TAB PO PRN ×2 (07:28→15:49)
[2017-09-16] MEDS: NICOTINE 21 MG/24 HR TDSY TD SCH (07:29)
[2017-09-16 07:44] LABS: HEMATOCRIT 40.1 % (42-52); HEMOGLOBIN 13.9 g/dL (14.0-18.0); MEAN CELL VOLUME 95.5 fL (80-100); MEAN CORPUSCULAR HEMOGLOBIN 33.1 pg (25-34); MEAN CORPUSCULAR HGB CONC 34.7 g/dl (32-36); MEAN PLATELET VOLUME 9.7 fL (7.4-10.4); PLATELET COUNT 202 K/uL (130-400); RED CELL DISTRIBUTION WIDTH CV 12.1 % (11.5-14.5); WHITE BLOOD COUNT 10.34 K/uL (4.8-10.8)
[2017-09-16 07:53] VITALS: BP 106/62; PULSE 75; TEMP 36.7; O2SAT 94
[2017-09-16 07:57] VITALS: O2SAT 94
[2017-09-16 08:13] LABS: CREATININE 0.76 mg/dl (0.60-1.40); POTASSIUM 3.5 mmol/L (3.5-5.1)
--- NOTE | 2017-09-16 13:26 | Surgery Progress Note ---
Surgery Progress Note Date of Service Sep 16, 2017. Subjective Post OP Day: HD # 2 , POD # 5 s/p lap appy "feeling better today" Passing flatus and liquid bowel movements Feels slightly bloated currently tolerating clear liquids, no nausea or vomiting pain controlled with po percocet Objective Vital Signs: Date Time Temp Pulse Resp B/P (MAP) Pulse Ox O2 Delivery O2 Flow Rate FiO2 09/16/17 07:57 94 Room Air 09/16/17 07:53 36.7 75 18 106/62 (77) 94 Room Air 09/16/17 07:15 Room Air 09/15/17 23:38 37.0 106 18 123/83 (96) 94 Room Air 09/15/17 23:30 Room Air 09/15/17 15:00 Room Air 09/15/17 14:51 36.9 107 18 114/72 (86) 92 Room Air General Appearance: WD/WN, no apparent distress Head: normocephalic, atraumatic Neck: trachea midline Respiratory/Chest: no respiratory distress, no accessory muscle use Abdomen: non distended, soft, + tenderness (appropriate post op, mild) Incision(s): clean, dry, intact, no erythema, no drainage Laboratory Results: Results Past 24 Hours Test 09/16/17 07:15 Range/Units White Blood Count 10.34 4.8-10.8 K/uL Red Blood Count 4.20 4.7-6.1 M/uL Hemoglobin 13.9 14.0-18.0 g/dL Hematocrit 40.1 42-52 % Mean Corpuscular Volume 95.5 80-100 fL Mean Corpuscular Hemoglobin 33.1 25-34 pg Mean Corpuscular Hemoglobin Concent 34.7 32-36 g/dl RDW Standard Deviation 42.0 36.4-46.3 fL RDW Coefficient of Variation 12.1 11.5-14.5 % Platelet Count 202 130-400 K/uL Mean Platelet Volume 9.7 7.4-10.4 fL Sodium Level 133 136-145 mmol/L Potassium Level 3.5 3.5-5.1 mmol/L Chloride Level 100 98-107 mmol/L Carbon Dioxide Level 28 21-32 mmol/L Anion Gap 5.0 3-11 mmol/L Blood Urea Nitrogen 5 7-18 mg/dl Creatinine 0.76 0.60-1.40 mg/dl Est Creatinine Clear Calc Drug Dose 108.4 ml/min Estimated GFR () 125.9 Estimated GFR (Non- 108.6 BUN/Creatinine Ratio 6.2 10-20 Random Glucose 96 70-99 mg/dl Calcium Level 9.0 8.5-10.1 mg/dl Assessment & Plan POD # 5 s/p laparoscopic appendectomy, left hospital on Sat 09/12 AMA - vitals stable, afebrile - leukocytosis resolved - minimal pain, controlled - no nausea or vomiting, tolerating clears Plan: Continue pain management with Percocet and IV Dilaudid prn Continue IV antibiotics until discharge Continue clear liquids May have Ice pack encourage ambulation Possible discharge home this evening Will be given Rx for Percocet only 3 day supply and home pack if discharged tonight (patient states he has no money to pay for Prescription and doesn't get paid until Thursday) dr. saldivar to see patient later today
[2017-09-16] MEDS ORDERED: OXYC-57 PO (13:27)
--- NOTE | 2017-09-16 13:30 | Discharge Instructions ---
Discharge Instructions Date of Service Sep 16, 2017. Admission Reason for Admission: Post-Op Pain Discharge Discharge Diagnosis / Problem: same Discharge Goals Goal(s): Decrease discomfort, Improve function Activity Recommendations Activity Limitations: as noted below No heavy lifting over 20 pounds for 3-4 weeks No strenuous activity until cleared by surgeon No submerging incisions underwater for 2 weeks (no bathing, swimming, or hot tubs) No driving while taking narcotic pain medication or until you are pain free . Instructions / Follow-Up Instructions / Follow-Up You may shower when you get home, gently clean incisions with soap and water if needed You do not need to keep incisions covered unless they are draining Walking and light activity is encouraged ONLY take Narcotic pain medication as needed. You may supplement with Ibuprofen as needed. Do not take Tylenol in between Percocet as it has Tylenol in it Follow-up with Dr. Pickett in 1 week, please call office at [phone] to make an appointment You will be given 5 more days of antibiotics please complete full course as directed Current Hospital Diet Patient's current hospital diet: Clear Liquid Diet Discharge Diet Recommended Diet: Regular Diet (as tolerated, smaller frequent meals) Pending Studies Studies pending at discharge: no Laboratory Results Lipid Panel Test 08/11/17 14:43 Range/Units Triglycerides Level 110 0-150 mg/dl Cholesterol Level 125 0-200 mg/dl HDL Cholesterol 54 mg/dl Cholesterol/HDL Ratio 2.3 LDL Cholesterol, Calculated 49 mg/dl Medical Emergencies . Who to Call and When: Medical Emergencies: If at any time you feel your situation is an emergency, please call 911 immediately. . Non-Emergent Contact Non-Emergency issues call your: Primary Care Provider, Surgeon Call Non-Emergent contact if: you have a fever, temperature is above 101, your pain is not controlled, your pain is worsening, your pain is unusual for you, wound has increased drainage, wound has increased redness, wound has increased pain . "Provider Documentation" section prepared by Alyse Nunn. . VTE Core Measure Inpt VTE Proph given/why not?: SCD's [place] Drug Monitoring Program Search Results: patient reviewed within database, no issues identified
[2017-09-16] MEDS ORDERED: METR500T PO (13:31)
[2017-09-16] MEDS ORDERED: CIPR-255 PO (13:31)
[2017-09-16] MEDS ORDERED: PERCOCET HOME PACK PO SCH (14:00)
[2017-09-16] MEDS ORDERED: NURSING VERBAL MED ORDER ONE ×2 (14:00→16:15)
[2017-09-16 15:12] VITALS: BP 116/82; PULSE 111; TEMP 36.6; O2SAT 95
[2017-09-16] MEDS ORDERED: PANTOprazole SOD 40 MG TAB PO SCH (15:15)
[2017-09-16 16:15] VITALS: BP 116/82; PULSE 111; TEMP 36.6; O2SAT 95
[2017-09-16] MEDS ORDERED: LORAZEPAM INJ 1 MG in SYRINGE 0.5 ML IV SCH (16:30)
--- NOTE | 2017-09-18 15:14 | Discharge Summary ---
Discharge Summary Dates Admission Date / Time: Sep 14, 2017 at 10:07 Discharge Date: Sep 16, 2017 Dispostion / Condition Discharge Disposition: Home Condition at Discharge: Good Principal Diagnosis (1) S/P laparoscopic appendectomy (2) Post-op pain Problem List (1) Chronic pain (2) Cannabis abuse (3) Bipolar disorder, current episode manic severe with psychotic features (4) Alcohol use disorder (5) Tobacco abuse (6) Acute appendicitis (7) Depression (8) Anemia (9) Chronic hip pain (10) S/P laparoscopic appendectomy Consultations / Procedures Procedures: none Medication Reconciliation New Medications: Ciprofloxacin Hcl (Cipro) 500 Mg Tab 500 MG PO BID, #10 TAB 0 Refills Metronidazole (Flagyl) 500 Mg Tab 500 MG PO TID, #15 TAB Oxycodone/Acetaminophen 5MG/325MG (Percocet 5MG/325MG) Tab 1 TABLET PO Q6H PRN for Pain, #12 TAB Continued Medications: Loratadine (Claritin) 10 Mg Tab 10 MG PO BID Pantoprazole (Protonix) 40 Mg Tab 40 MG PO DAILY Admission HPI Per the Admitting provider: pt is a 47 year old who is post-op laparoscopic appendectomy 2 days ago, pt signed AMA left hospital 2 days ago, now pt comes back to ER with increase abdominal pain, pt denies nausea, no vomiting, passed some gas , no BM yet, pt denies fever, no diarrhea, pt said "he should not sign [facility], I should follow Doctor order". Hospital Course (1) Post-op pain Patient was admitted to the medical/surgical floor from the emergency department and was placed on IV fluids, IV antibiotics (Cipro/flagyl), IV pain medication as well as PO Percocet as needed, IV Zofran, and kept NPO. He was revaluated on POD # 3, HD # 1 and his leukocytosis slightly decreased to 11.26K. He was afebrile throughout the night. Abdominal pain slightly improving. No chills, sweats, nausea, or vomiting, Diet was advanced to clear liquid diet. On POD # 4 patients white count resolved to 10.34K, abdominal pain minimal, positive bowel function, afebrile, and tolerating clear liquids. Patient wanted to go home. He was sent home with PO Cipro/flagyl and also pain medication. Overall hospital course uneventful. Discharge Instructions as given Copies To Primary Care Provider: Anna Salinas .MIAN.
== END 2017-09-16 16:46 | disposition home or self-care (01) | DRG 561 ==
LOC: C.EDB 08:11 → C.MSW 10:07 → ENRESERV 10:18
PROVIDERS: ADMIT Surgery; ATTEND Surgery
DX: T84.53XA Infection and inflammatory reaction due to internal right knee prosthesis, initial encounter (principal); F31.9 Bipolar disorder, unspecified; G89.29 Other chronic pain; F17.200 Nicotine dependence, unspecified, uncomplicated; K21.9 Gastro-esophageal reflux disease without esophagitis; F12.10 Cannabis abuse, uncomplicated; F10.10 Alcohol abuse, uncomplicated; Z91.14 Patient's other noncompliance with medication regimen; Y79.2 Prosthetic and other implants, materials and accessory orthopedic devices associated with adverse incidents